=== PATIENT | male | born 1950 | race Caucasian/White ===

== ENCOUNTER 2016-12-16 17:51 | Inpatient (IN) ==
[2016-12-16] MEDS ORDERED: 0.9 % Sodium Chloride 1,000 ML IVC ONE (18:03)
[2016-12-16] MEDS: Ondansetron 4 MG/2 ML VIAL ONE (18:04)
[2016-12-16 18:26] LABS: Basophils # 0.1 K/mcL (0.0-0.2); Basophils % 0.4 %; Eosinophils % 0.1 %; Hematocrit 40.8 % (37.5-50.1); Hemoglobin 13.8 g/dL (12.9-16.9); Immature Granulocytes % 0.8 % (0-4); Lymphocytes # 1.4 K/mcL (0.6-4.6); Lymphocytes % 7.5 %; Mean Corpuscular HGB Conc 33.8 g/dL (31.6-35.5); Mean Corpuscular Hemoglobin 31.8 pg (28.0-33.3); Mean Platelet Volume 9.3 fL (9.4-12.4); Monocytes # 0.8 K/mcL (0.0-1.3); Neutrophils # 16.2 K/mcL (1.6-8.9); Platelet Count 380 K/mcL (140-400); Red Blood Count 4.34 M/mcL (4.19-5.50); Red Cell Distribution Width 11.6 % (11.5-14.5); Segmented Neutrophils % 87.2 %
--- NOTE | 2016-12-16 18:49 | Emergency Department Note ---
Disposition Clinical Impression: Colitis, Dizziness Nausea and vomiting Qualifiers: Vomiting type: unspecified Vomiting Intractability: intractable Qualified Code( s): R11.2 - Nausea with vomiting, unspecified Disposition: Admitted As Inpatient Condition: Good Time of Disposition: 20:24 General Adult HPI - General Chief complaint: ED Nausea/Vomiting/Diarrhea Stated complaint: Multiple complaints Time Seen by Provider: 12/16/16 17:53 Source: patient Limitations: no limitations Nursing Notes Reviewed: Yes Vital Signs Reviewed: Yes - History of Present Illness HPI Narrative: 66-year-old male presented to the emergency department multiple complaints via EMS. Patient states this morning when he woke up he felt dizzy, chest pain, had abdominal pain and nausea and vomiting. Patient also states he has a headache. This headache is the exact same symptoms as his previous headaches but he was unable to take his Tylenol due to the vomiting. Patient states he also has diffuse abdominal tenderness and is actively vomiting in the room. Denies hematemesis or hematochezia. Patient has no significant cardiac history and denies any strokes. Denies being on any blood thinners at this time. Denies any visual changes or other neurological complaints. Denies any previous abdominal surgeries but does disclose a history of gallstones. Pain Scale: 6 - Related Data Allergies Allergy/AdvReac Type Severity Reaction Status Date / Time propoxyphene [From Darvon] Allergy Itching Verified 10/23/16 09:11 All systems ED: reviewed and negative except as stated. Constitutional: Denies: fever, chills Eyes: Reports: as per HPI ENT ED: Reports: as per HPI Cardiovascular: Reports: chest pain. Denies: palpitations, dyspnea on exertion Respiratory: Denies: cough, dyspnea, wheezes Gastrointestinal: Reports: abdominal pain, nausea, vomiting Genitourinary: Reports: as per HPI Musculoskeletal: Reports: as per HPI Integumentary: Denies: rash, abrasion, lesions Neurological: Reports: headache. Denies: weakness, numbness, paresthesias Psychiatric: Reports: as per HPI Endocrine: Reports: as per HPI Hematological/Lymphatic: Reports: as per HPI Allergic/Immunologic: Reports: as per HPI Past Medical History - Past Medical History Attestation: Yes The following information was validated with the patient. Medical history: Reports: COPD, hypertension Psychiatric history: Reports: no psych history - Social History Smoking Status: Current every day smoker Smokeless Tobacco Status: No Alcohol use: Reports: none Drug use: Reports: none Physical Exam - General Limitations: no limitations General appearance: alert, in no apparent distress - Head Head exam: atraumatic, normocephalic, normal inspection - Eye Eye exam: Present: other (Rotatory nystagmus noted.) - Chest Chest inspection: Present: normal inspection, symmetric chest wall rise. Absent : tenderness, rash - Respiratory Respiratory exam: Present: normal lung sounds bilaterally. Absent: respiratory distress, wheezes - Cardiovascular Cardiovascular exam: Present: regular rate, normal rhythm, normal heart sounds - Abdominal Exam Abdominal exam: Present: soft, tenderness, normal bowel sounds. Absent: distention, guarding, rebound, rigidity Abdominal tenderness: Present: diffuse, moderate - Extremities Exam Extremities exam: Present: normal inspection, full ROM - Back Exam Back exam: Absent: CVA tenderness (R), CVA tenderness (L) - Neurological Exam Neurological exam: Present: alert, oriented X3 - Psychiatric Psychiatric exam: Present: normal affect, normal mood - Skin Skin exam: Present: warm, intact Course Course Narrative: 66-year-old male presenting to the emergency department with multiple complaints. We will workup each individual complaint including chest pain rule out, CT of the head, abdominal labs including CBC, CMP, lipase. Disposition pending results and imaging. Patient is alert and oriented 3 in the room although he does have rotatory nystagmus. Patient continually changes his story with each physician in the room. Vital signs are stable at this time. Nausea being controlled by 8 mg of Zofran at this time. - Reevaluation(s) Reevaluation #1: Patient's CT showed concern for right colon colitis. We will begin Zosyn on the patient and admit him to the hospitalist. Patient still dizzy after meclizine. States he is having more severe abdominal pain. We will provide him with pain medication at this time. Patient states his nausea is much better. Vital signs are stable and the room patient's alert and oriented 3. Plan to admit the patient at this time. Dr. Moon accepts the patient. Time: 20:24 Vital Signs Temperature 97.7 F 12/16/16 17:52 Pulse Rate 82 12/16/16 17:52 Respiratory Rate 18 12/16/16 17:52 Blood Pressure 92/64 12/16/16 17:52 O2 Sat by Pulse Oximetry 99 12/16/16 17:52 Temperature 97.7 F 12/16/16 17:52 Pulse Rate 68 12/16/16 20:45 Respiratory Rate 20 12/16/16 20:45 Blood Pressure 142/85 12/16/16 20:45 O2 Sat by Pulse Oximetry 96 12/16/16 20:45 Oxygen Delivery Oxygen Delivery Room Air Medical Decision Making - Medical Records Medical records reviewed: Yes I reviewed the patient's medical records. - Lab Data Lab results reviewed: Yes I reviewed the patient's lab results. Result diagrams: 12/16/16 18:13 12/16/16 18:13 Lab Results 12/16/16 12/16/16 12/16/16 Range/Units 18:13 18:13 18:13 WBC 18.6 H (4.3-11.1) K/mcL RBC 4.34 (4.19-5.50) M/mcL Hgb 13.8 (12.9-16.9) g/dL Hct 40.8 (37.5-50.1) % MCV 94.0 (83.0-100.0) fL MCH 31.8 (28.0-33.3) pg MCHC 33.8 (31.6-35.5) g/dL RDW 11.6 (11.5-14.5) % Plt Count 380 (140-400) K/mcL MPV 9.3 L (9.4-12.4) fL Immature Gran % 0.8 (0-4) % Seg Neutrophils % 87.2 % Lymphocytes % 7.5 % Monocytes % 4.0 % Eosinophils % 0.1 % Basophils % 0.4 % Neutrophils # 16.2 H (1.6-8.9) K/mcL Lymphocytes # 1.4 (0.6-4.6) K/mcL Monocytes # 0.8 (0.0-1.3) K/mcL Eosinophils # 0.0 (0.0-0.6) K/mcL Basophils # 0.1 (0.0-0.2) K/mcL Sodium 140 (136-145) mEq/L Potassium 4.1 (3.5-4.5) mEq/L Chloride 107 (98-109) mEq/L Carbon Dioxide 24 (19-29) mEq/L BUN 10 (8-26) mg/dL Creatinine 0.74 (0.72-1.25) mg/dL Est GFR ( Amer) > 60 (> 60) Est GFR (Non-Af Amer) > 60 (> 60) BUN/Creatinine Ratio 14 (6-26) Glucose 141 H (70-99) mg/dL Calculated Osmolality 291 (280-300) Calcium 9.3 (8.6-10.8) mg/dL Magnesium 1.8 (1.6-2.6) mg/dL Total Bilirubin 0.4 (0.2-1.2) mg/dL AST 22 (5-34) Units/L ALT 20 (0-55) Units/L Alkaline Phosphatase 118 (38-126) Units/L Troponin I 0.01 (0-0.03) ng/mL Serum Total Protein 6.7 (6.0-8.3) g/dL Albumin 3.8 (3.5-5.0) g/dL Globulin 2.9 (2.4-3.5) g/dL Albumin/Globulin Ratio 1.3 (1.1-2.2) Lipase 18 (8-78) Units/L Urine Color (Yellow) Urine Clarity (Clear) Urine pH (5.0-8.0) pH Units Ur Specific [place] (1.010-1.025) Urine Protein (Neg-Trace) mg/dL Urine Glucose (UA) (Normal) mg/dL Urine Ketones (Negative) mg/dL Urine Blood (Negative) Urine Nitrite (Negative) Urine Bilirubin (Negative) Urine Urobilinogen (Normal) mg/dL Ur Leukocyte Esterase (Negative) Urine Microscopic RBC (0-3) per hpf Urine Microscopic WBC (0-3) per hpf Urine Bacteria (None-Few) per hpf Ur Culture Indicated? (NO) Ethyl Alcohol < 10 (0-10) mg/dL 12/16/16 Range/Units 18:20 WBC (4.3-11.1) K/mcL RBC (4.19-5.50) M/mcL Hgb (12.9-16.9) g/dL Hct (37.5-50.1) % MCV (83.0-100.0) fL MCH (28.0-33.3) pg MCHC (31.6-35.5) g/dL RDW (11.5-14.5) % Plt Count (140-400) K/mcL MPV (9.4-12.4) fL Immature Gran % (0-4) % Seg Neutrophils % % Lymphocytes % % Monocytes % % Eosinophils % % Basophils % % Neutrophils # (1.6-8.9) K/mcL Lymphocytes # (0.6-4.6) K/mcL Monocytes # (0.0-1.3) K/mcL Eosinophils # (0.0-0.6) K/mcL Basophils # (0.0-0.2) K/mcL Sodium (136-145) mEq/L Potassium (3.5-4.5) mEq/L Chloride (98-109) mEq/L Carbon Dioxide (19-29) mEq/L BUN (8-26) mg/dL Creatinine (0.72-1.25) mg/dL Est GFR ( Amer) (> 60) Est GFR (Non-Af Amer) (> 60) BUN/Creatinine Ratio (6-26) Glucose (70-99) mg/dL Calculated Osmolality (280-300) Calcium (8.6-10.8) mg/dL Magnesium (1.6-2.6) mg/dL Total Bilirubin (0.2-1.2) mg/dL AST (5-34) Units/L ALT (0-55) Units/L Alkaline Phosphatase (38-126) Units/L Troponin I (0-0.03) ng/mL Serum Total Protein (6.0-8.3) g/dL Albumin (3.5-5.0) g/dL Globulin (2.4-3.5) g/dL Albumin/Globulin Ratio (1.1-2.2) Lipase (8-78) Units/L Urine Color Yellow (Yellow) Urine Clarity Cloudy A (Clear) Urine pH 8.0 (5.0-8.0) pH Units Ur Specific [place] 1.018 (1.010-1.025) Urine Protein Negative (Neg-Trace) mg/dL Urine Glucose (UA) Normal (Normal) mg/dL Urine Ketones Negative (Negative) mg/dL Urine Blood Negative (Negative) Urine Nitrite Negative (Negative) Urine Bilirubin Negative (Negative) Urine Urobilinogen Normal (Normal) mg/dL Ur Leukocyte Esterase Negative (Negative) Urine Microscopic RBC 0-3 (0-3) per hpf Urine Microscopic WBC 0-3 (0-3) per hpf Urine Bacteria Few (None-Few) per hpf Ur Culture Indicated? NO (NO) Ethyl Alcohol (0-10) mg/dL - Radiology Data Radiology results reviewed: Yes I reviewed the patient's radiology results. Chest X-Ray 12/16/16 18:04 IMPRESSION: Negative portable study. D/ / Ting Lozada Cha, MD / Ting Lozada Cha, MD Interpreting Provider: Ting Lozada Cha, MD Head CT 12/16/16 18:30 IMPRESSION: Patchy areas of small vessel ischemic change bilaterally with a few prior lacunar infarcts. No acute abnormality otherwise. D/ / James Langford / James Langford Interpreting Provider: James Langford Abdomen/Pelvis CT 12/16/16 19:09 IMPRESSION: Right nephrolithiasis. Questionable wall thickening the right colon. Correlation for infectious or inflammatory right colitis is recommended. D/ / Ting Lozada Cha, MD / Ting Lozada Cha, MD Interpreting Provider: Ting Lozada Cha, MD Attestation Statement - Attestation Attestation: I examined this patient and my medical decision-making was reviewed with the Resident Physician, Dr. Cote. I agree with the documented findings, disposition and treatment plan as described except to the extent set forth below. Patient is a 66-year-old white male who presents to the emergency department brought by his family today for intractable nausea and vomiting since waking this morning. Patient states to me that upon waking he had a sudden onset of intense dizziness and upon getting out of bed had difficulty walking due to this spinning sensation, describes him hanging onto things to get to the bathroom. After arriving in the bathroom patient began having nausea and vomiting which has lasted the entire day. Patient denies any headache, difficulty with speech, no focal weakness or numbness of the extremities, and denies any loss of consciousness due to these symptoms. Patient denies any chest pain pressure or heaviness, no diaphoresis, does complain of abdominal pain in various locations but upon questioning points to his right lower quadrant. Patient denies any bowel changes associated with this nausea and vomiting. Patient feels strongly that all the symptoms began with dizziness followed by the nausea and vomiting which was then followed by the abdominal pain. Patient states that this time he is most bothered by the ongoing dizziness which is worse with positional changes and head turning. Vital signs stable on arrival. I agree with patient's physical exam findings as documented. Patient had IV saline while established IV fluids were initiated and he was given medication for nausea vomiting and vertigo. This quickly resolved his vomiting and patient was resting more comfortably. Due to the new onset of vertigo we did obtain head CT. Symptoms began around 7:00 this morning. Patient's head CT showed some chronic ischemic changes but no acute findings. We proceeded with a chest x-ray and EKG. EKG showed a right bundle branch block but no acute ischemia. Patient's troponin was within normal limits. Due to ongoing complaints of some mild abdominal pain we proceeded with abdominal and pelvic CAT scan with contrast. CT showed findings consistent with early colitis. We will cover the patient with IV antibiotics and admit the patient for ongoing vertigo, nausea vomiting, leukocytosis and colitis. Patient remained hemodynamically stable throughout his ED course.
[2016-12-16 18:51] LABS: Alanine Aminotransferase 20 Units/L (0-55); Albumin 3.8 g/dL (3.5-5.0); Albumin/Globulin Ratio 1.3 (1.1-2.2); Alkaline Phosphatase 118 Units/L (38-126); Aspartate Amino Transferase 22 Units/L (5-34); BUN/Creatinine Ratio 14 (6-26); Bilirubin,Total 0.4 mg/dL (0.2-1.2); Blood Urea Nitrogen 10 mg/dL (8-26); Calcium 9.3 mg/dL (8.6-10.8); Carbon Dioxide 24 mEq/L (19-29); Chloride 107 mEq/L (98-109); Globulin 2.9 g/dL (2.4-3.5); Glucose 141 mg/dL (70-99); Lipase 18 Units/L (8-78); Osmolality,Calculated 291 (280-300); Potassium 4.1 mEq/L (3.5-4.5); Sodium 140 mEq/L (136-145); Total Protein 6.7 g/dL (6.0-8.3); eGFR For African Americans > 60 (> 60); eGFR For Non-African Americans > 60 (> 60)
[2016-12-16 19:07] LABS: Magnesium 1.8 mg/dL (1.6-2.6)
[2016-12-16 19:08] LABS: Ethanol < 10 mg/dL (0-10)
[2016-12-16 19:24] LABS: Bilirubin,Urine Negative (Negative); Blood,Urine Negative (Negative); Clarity,Urine Cloudy (Clear); Color,Urine Yellow (Yellow); Glucose,Urine (UA) Normal (Normal); Ketones,Urine Negative (Negative); Leukocyte Esterase,Urine Negative (Negative); Nitrite,Urine Negative (Negative); Protein,Urine Negative (Neg-Trace); Specific Gravity,Urine 1.018 (1.010-1.025); Urobilinogen,Urine Normal (Normal)
[2016-12-16 19:58] LABS: RBC,Urine 0-3 per hpf (0-3); WBC,Urine 0-3 per hpf (0-3)
[2016-12-16 19:59] LABS: Bacteria,Urine Few per hpf (None-Few)
[2016-12-16] MEDS ORDERED: Piperacillin/Tazobactam 3.375 GM in D5% in Water (Mini-Bag+) 100 ML IVPB ONE (20:15)
[2016-12-16] MEDS ORDERED: *HR* FentaNYL (PF) 100 MCG/2 ML VIAL IVP ONE (20:25)
[2016-12-17] MEDS ORDERED: Ondansetron 4 MG/2 ML VIAL IVP PRN (00:21)
[2016-12-17] MEDS ORDERED: *HR* Morphine 2 MG/ML SYRINGE IVP PRN (00:22)
[2016-12-17] MEDS ORDERED: 0.9 % Sodium Chloride 1,000 ML ONE (00:43)
[2016-12-17] MEDS ORDERED: Acetaminophen 325 MG TABLET PO PRN (01:03)
[2016-12-17] MEDS ORDERED: Naloxone 0.4 MG/ML INJ IVP PRN (01:03)
--- NOTE | 2016-12-17 01:12 | Internal Med History&Physical ---
Date of Encounter: 12/17/16 Time of Encounter: 21:00 Assessment and Plan (1) Colitis Current visit: Yes Status: Acute CT chest showeda rather raise the concern for right-sided colitis. On examination I did not notice any rebound tenderness or mass. However some tenderness is present. Patient does have fever. Based on CAT scan he has right -sided colitis other possibilities could be ischemic colitis versus infectious. He is a little too old for inflammatory bowel disease. Blood culture drawn in the ER and he will be started on IV Levaquin and Flagyl. Aggressive hydration with normal saline 200 mL an hour but that can be reduced tomorrow after assessing fluid balance. Follow-up with CBC and CMP. Discussed with patient and the family and also answer all the questions. Patient says he is allergic to morphine as is the driving him crazy. We will try to avoid morphine derivatives try IV Toradol for couple of doses before he can able to take oral then probably Glen can be started. IV Zofran when necessary. IV Protonix as started. I consulted. (2) Dizziness Current visit: Yes Status: Acute (3) Nausea and vomiting Current visit: Yes Status: Acute Qualifiers: Vomiting type: unspecified Vomiting Intractability: intractable Qualified Code(s): R11.2 - Nausea with vomiting, unspecified Internal Medicine - H&P: HPI Chief complaint: Abdominal pain Admitted From: Home Plans for Post Hospital Care: Home History of present illness: Mr. Kaur is a 66 year old male was medical history significant for bipolar disorder presented with 1 day history of diffuse abdominal pain nausea vomiting. Pain is more generalized no known aggravating or relieving factors associated with some dizziness. According to ER notes patient complaint chest pain however to me he did not complain such. He denies any shortness of breath fever or chills dysuria urgency frequency hematuria hematemesis hematochezia or melena. Past Med Surg Social Fam HX - Past Medical History Medical history: COPD, hypertension Psychiatric history: no psych history - Past Surgical History Surgical History: no surgical history - Social History Smoking Status: Current every day smoker Smokeless Tobacco Status: No Alcohol use: none Drug use: none Internal Medicine - H&P: Meds 3 Allergy/AdvReac Type Severity Reaction Status Date / Time propoxyphene [From Darvon] Allergy Itching Verified 10/23/16 09:11 All Systems PM: A 10-system review of systems was performed and is negative for pertinent findings except as documented above in the HPI. - Constitutional Constitutional: no chills, no fever(s), no night sweats - EENT Eyes: no change in vision, no discharge, no pain, no photophobia Ears: no ear discharge, no ear pain, no tinnitus Nose, mouth and throat: no dysphagia, no nasal discharge, no neck pain, no sore throat - Cardiovascular Cardiovascular ROS IM: no chest pain, no diaphoresis, no dyspnea, no lightheadedness, no palpitations, no syncope - Respiratory Respiratory: no cough, no dyspnea, no wheezing, no excessive phlegm production - Gastrointestinal Gastrointestinal: abdominal pain, nausea, vomiting, no diarrhea, no hematemesis , no hematochezia, no melena - Musculoskeletal Musculoskeletal ROS IM: no numbness, no tingling - Integumentary Integumentary IM: no rash, no unusual bruising - Neurological Neurological ROS: no confusion, no convulsions, no focal weakness, no numbness, no tingling, no tremor(s) - Hematologic/Lymphatic Hematologic/Lymphatic: no easy bruising - Constitutional Vitals: Temp Pulse Resp BP Pulse Ox 97.8 F 69 17 128/78 97 12/16/16 22:15 12/16/16 22:15 12/16/16 22:15 12/16/16 22:15 12/16/16 22:15 General appearance: Present: mild distress, A&O X 3, answers questions appropriately - Head Head exam: Present: atraumatic, normocephalic - Eye Eye exam: Present: PERRL, conjuntiva pink, sclera anicteric Pupils: Present: PERRL - Neck Neck exam general surgery: Present: supple, trachea midline. Absent: lymphadenopathy - Respiratory Respiratory exam: Present: CTAB. Absent: accessory muscle use, rales, rhonchi, wheezes - Cardiovascular Cardiovascular exam: Present: RRR, +S1, +S2. Absent: diastolic murmur, gallop, rubs, systolic murmur - GI/Abdominal GI/Abdominal exam: Present: hypoactive bowel sounds, soft, tenderness, no peritoneal signs. Absent: distended - Extremities Exam Extremities exam: Present: warm, radial pulses palpable and symmetrical. Absent : calf tenderness, cyanotic, pedal edema - Neurological Exam Neurological exam: Present: CN II-XII intact, oriented X3, no focal deficits. Absent: pronater drift, facial droop, speech deficit - Skin Skin exam: Present: dry, intact Internal Med - H&P Results - Labs CBC & Chem 7: 12/16/16 18:13 12/16/16 18:13
[2016-12-17] MEDS: 0.9 % Sodium Chloride 1,000 ML IVC SCH ×4 (01:16→17:18)
[2016-12-17] MEDS: Levofloxacin 500 MG/100 ML 500 MG/100 ML BAG IVPB SCH (01:34)
[2016-12-17] MEDS: Ketorolac 30 MG/ML VIAL IVP PRN ×2 (01:34→08:10)
[2016-12-17] MEDS: Pantoprazole 40 MG VIAL IVP SCH (08:10)
[2016-12-17] MEDS: Ondansetron 4 MG/2 ML VIAL IVP PRN ×2 (08:11→17:19)
[2016-12-17 08:28] LABS: Basophils % 0.2 %; Eosinophils % 0.2 %; Hematocrit 40.9 % (37.5-50.1); Hemoglobin 13.8 g/dL (12.9-16.9); Immature Granulocytes % 0.5 % (0-4); Immature Platelets 3.2 % (1.1-6.1); Lymphocytes # 2.2 K/mcL (0.6-4.6); Mean Corpuscular HGB Conc 33.7 g/dL (31.6-35.5); Mean Corpuscular Hemoglobin 31.9 pg (28.0-33.3); Mean Corpuscular Volume 94.7 fL (83.0-100.0); Mean Platelet Volume 9.5 fL (9.4-12.4); Monocytes # 1.2 K/mcL (0.0-1.3); Monocytes % 8.7 %; Neutrophils # 9.7 K/mcL (1.6-8.9); Platelet Count 421 K/mcL (140-400); Red Blood Count 4.32 M/mcL (4.19-5.50); Red Cell Distribution Width 11.8 % (11.5-14.5); Segmented Neutrophils % 73.4 %
[2016-12-17 08:38] LABS: BUN/Creatinine Ratio 14 (6-26); Blood Urea Nitrogen 11 mg/dL (8-26); Calcium 9.5 mg/dL (8.6-10.8); Carbon Dioxide 23 mEq/L (19-29); Chloride 108 mEq/L (98-109); Glucose 96 mg/dL (70-99); Magnesium 1.6 mg/dL (1.6-2.6); Osmolality,Calculated 287 (280-300); Phosphorous 3.1 mg/dL (2.3-4.7); Potassium 4.4 mEq/L (3.5-4.5); Sodium 139 mEq/L (136-145); eGFR For African Americans > 60 (> 60); eGFR For Non-African Americans > 60 (> 60)
--- NOTE | 2016-12-17 09:23 | Neurology - Consult Note ---
<Stan Acharya - Last Filed: 12/17/16 11:39> Date of Encounter: 12/17/16 Time of Encounter: 08:45 Assessment and Plan (1) Double vision with both eyes open Current Visit: Yes Status: Acute Patient reports double vision when both of his eyes are open. He states that the double vision is resolved when one eye is closed, suggesting binocular diplopia. He states that this has been off and on for the last 6 months and appears to be somewhat associated with a severe headache that he has been having in the same period of time. He woke this morning with double vision that did not go away like it normally does. CT scans of the patient head show remote lacunar infarct in the basal ganglia, but no acute changes seen on CT. Patient double vision could be due to CVA, migraine, aneurysm, malignancy, hydrocephalus. CTA of the head/neck was ordered and will wait for completion Recommend MRI Allow permissive hypertension until CVA has been ruled out (2) Headache Current Visit: Yes Status: Acute Patient reports having headache off and on for the last 6 months that has been associated with episodes of double vision. He reprots that the headache starts in the back of his head and radiates into his right eye. He states that there is some photophobia with his headaches and that being aggravated generally makes his headaches worse. He has not noticed that anything makes the headaches better. Patient headache could be due to migraine, aneurysm, malignancy, CVA, strain from vomiting. Though with the report of photophobia, binocular diplopia , nausea, and vomiting there is concern that this could represent a brainstem migraine. Given the patient age and risk factors, recommend further evaluation of headache with Head/Neck CTA and MRI If no other reason for symptoms found consider arrest of headache with reglan, benadry, and toradol History of Present Illness Chief complaint: Nausea, vomiting, headache, abdominal pain, double vision HPI: Mr. Kaur is a 66 year old male who presented to the ER yesterday because of having 1 day of continued nausea, vomiting, and abdominal pain. During this time , he states that he has had a severe headache and some double vision as well. He states that he woke on Saturday morning and was having nausea and vomiting, preventing him from keeping anything down. He had developed abdominal pain with his symptoms. He also states that in the same time frame he had been having a severe headache. He woke this morning at 630 and immediately noticed that he was having double vision. His double vision is worse in his peripheral vision and goes away when he closes one eye. The headache he is having is associated with some photophobia, but not severe. General aggravation makes the pain worse. Since Saturday, he states that he has been feeling dizzy and has had some difficulty walking, relying on furniture and objects in the house to help support him. He has suffered a fall while he was out working outside. He has a history of COPD and had become short of breath and fell. He reports that at this time he was having the headache and double vision. He states that he has been having these same severe headaches for the last 6 months and that they start in the back of his head and radiate into his right eye. Since these headaches have begun he has been having off and on double vision as well, that is worse in his peripheral vision. In the past his double vision had only lasted for a couple seconds. Past Med Surg Social Fam HX - Past Medical History Medical history: COPD, hypertension Psychiatric history: no psych history - Past Surgical History Surgical History: no surgical history - Social History Smoking Status: Current every day smoker Smokeless Tobacco Status: No Alcohol use: none Drug use: none Medications and Allergies Albuterol Sulfate [Albuterol Inhaler] 2 puff IH Q6H PRN 12/17/16 [History] Aspirin [Lo-Dose Aspirin EC] 81 mg PO DAILY 12/17/16 [History] Carboxymethylcellulose Sodium [Refresh Tears] 1 drop BOTH EYES QID 12/17/16 [ History] Cyclobenzaprine [Flexeril] 10 mg PO TID 12/17/16 [History] Docusate Sodium [Dok] 300 mg PO HS 12/17/16 [History] FLUoxetine HCl [PROzac] 40 mg PO DAILY 12/17/16 [History] Fluticasone Propionate [Allergy Relief] 1 spr NS BID 12/17/16 [History] Gabapentin [Neurontin] 100 mg PO TID 12/17/16 [History] Lisinopril [Zestril] 10 mg PO DAILY 12/17/16 [History] [place] Carbonate 300 mg PO BID 12/17/16 [History] Meloxicam [Mobic] 7.5 mg PO DAILY 12/17/16 [History] Mometasone Furoate [Asmanex] 220 mcg IH BID 12/17/16 [History] Multivit-Min/FA/Lycopen/Lutein [A [employer] Multivit Tab] 1 tab PO DAILY [History] Omeprazole [PriLOSEC] 40 mg PO DAILY 12/17/16 [History] Sildenafil Citrate [Viagra] 100 mg PO AD PRN 12/17/16 [History] Simethicone [Gas-X] 160 mg PO TID PRN 12/17/16 [History] hydroCHLOROthiazide [Hydrochlorothiazide] 12.5 mg PO DAILY 12/17/16 [History] 3 Allergy/AdvReac Type Severity Reaction Status Date / Time propoxyphene [From Darvon] Allergy Itching Verified 10/23/16 09:11 morphine AdvReac Confusion Verified 12/17/16 01:18 - Constitutional Constitutional ROS IM: headache(s), no anorexia, no chills, no fever(s), no weakness - Eyes Eyes: right: pain, bilateral: diplopia (as per HPI) - Ears Ears: bilateral: decreased hearing (chronic) - Nose, Mouth, Throat Nose, mouth and throat: dizziness, facial pain, headache(s), no hoarseness - Cardiovascular Cardiovascular ROS IM: no chest pain, no diaphoresis, no edema - Respiratory Respiratory IM: dyspnea (as per HPI), no cough - Gastrointestinal Gastrointestinal: abdominal pain, diarrhea, nausea, vomiting, no constipation, no hematemesis, no hematochezia - Musculoskeletal Musculoskeletal ROS IM: abnormal gait (as per HPI), no muscle cramps, no muscle weakness - Neurological Neurological ROS: abnormal gait, dizziness, headache(s), numbness (around nose) , no loss of vision, no memory loss, no syncope, no weakness Physical Examination - Vital Signs Vital Signs: Initial Vital Signs Temp Pulse Resp BP Pulse Ox 97.7 F 82 18 92/64 99 12/16/16 17:52 12/16/16 17:52 12/16/16 17:52 12/16/16 17:52 12/16/16 17:52 - Constitutional General appearance: comfortable - Neurologic Detailed motor examination: grossly full strength in all extremities Detailed sensory examination: light touch (decreasedd sensation in b/l maxilla) Reflex and gait examination: intact Mental Status Examination: awake, alert, oriented to person, oriented to place, oriented to time, follows commands appropriately, answers questions appropriately, no aphasia, no aproxia Cranial nerve examination: PERRL, EOMI, visual ambriz intact, no facial asymmetry is present, no dysarthria, hearing is intact symmetrically, flexes SCM and trapezius muscles symmetrically with full power, tongue protrudes midline Cerebellar examination: no dysmetria, performs finger to nose and heel to badillo symmetrically without ataxia (slight tremulousness) Results - Laboratory Findings CBC and BMP: 12/17/16 08:03 12/17/16 08:03 Abnormal lab findings: Abnormal lab results WBC 13.2 K/mcL (4.3-11.1) H 12/17/16 08:03 Plt Count 421 K/mcL (140-400) H 12/17/16 08:03 Neutrophils # 9.7 K/mcL (1.6-8.9) H 12/17/16 08:03 ESR 15 mm/hr (0-10) H 12/17/16 08:03 POC Glucose 93 (58-89) H 12/17/16 08:23 Urine Clarity Cloudy (Clear) A 12/16/16 18:20 Consult Discharge Plan - Plan [facility] Care Provider[facility] - <Andrés Slater - Last Filed: 12/17/16 18:07> Date of Encounter: 12/17/16 Time of Encounter: 17:56 Assessment and Plan (1) Double vision with both eyes open Current Visit: Yes Status: Acute This patient is indeed describing intermittent binocular diplopia. Generally this is secondary to either problems with brainstem function, cranial nerve function as the plays a role in extraocular motility, problems with the extraocular muscles. I would like to rule out the possibility of a small brainstem infarct although the lack of other cranial nerve findings probably decrease the likelihood of this. Although he does seem to have migraine headaches, the diplopia and the headaches seem to be independent in one another. The CTA of the brain was negative for evidence of an aneurysm. He does not have malignant hypertension. I am going to check an Sid level as well as thyroid functions. Otherwise If the MRI of the brain is negative for brainstem pathology and labs are negative, I would attribute this problem to difficulty with extraocular motility and recommend he see an cob sawyer to consider prisms. History of Present Illness HPI: Patient was seen, chart was reviewed independently, patient was examined independently. The case was discussed with Dr. Acharya. I agree with his history as taken above. In addition I would like to add that CT scan of the neck and of the brain was unremarkable. No evidence of aneurysm is present. Patient's headaches and diplopia also independent of one another. He denies any other brainstem symptomatology other than the diplopia which is been occurring intermittently for 6 months now. He denies ptosis, denies dyspnea or shortness of breath. All Systems: A 10-system review of systems was performed and is negative for pertinent findings except as documented above in the HPI. Review of Systems: 10 point review of systems is consistent with a history of present illness and otherwise negative. Physical Examination - Vital Signs Vital Signs: Initial Vital Signs Temp Pulse Resp BP Pulse Ox 97.7 F 82 18 92/64 99 12/16/16 17:52 12/16/16 17:52 12/16/16 17:52 12/16/16 17:52 12/16/16 17:52 - Neurologic Detailed motor examination: full strength in all major muscle groups Motor examination - right side: 5/5: deltoids, biceps, triceps, wrist flexion, wrist extension, back tender fourdrinier, hip flexors, tibialis Anterior, quadriceps, toe extension (EHL), plantarflexion Motor examination - left side: 5/5: deltoids, biceps, triceps, wrist flexion, wrist extension, hip flexors, back tender fourdrinier, quadriceps, tibialis Anterior, toe extension (EHL), plantarflexion Mental Status Examination: awake, alert, oriented to person, oriented to place, oriented to time, follows commands appropriately, answers questions appropriately, no agnosia, no aphasia, no aproxia Cranial nerve examination: PERRL, EOMI, visual ambriz intact, corneal reflexes brisk symmetrically, sensory to face intact, mastication intact, no facial asymmetry is present, no dysarthria, hearing is intact symmetrically, soft palate elevates bilaterally upon phonation, gag reflex intact, flexes SCM and trapezius muscles symmetrically with full power, tongue protrudes midline, no atrophy or facial fasiculations present Cerebellar examination: no dysmetria, performs finger to nose and heel to badillo symmetrically without ataxia, no gait ataxia, no truncal ataxia, no difficulty with rapid alternating movements Results - Laboratory Findings CBC and BMP: 12/17/16 08:03 12/17/16 08:03 Abnormal lab findings: Abnormal lab results WBC 13.2 K/mcL (4.3-11.1) H 12/17/16 08:03 Plt Count 421 K/mcL (140-400) H 12/17/16 08:03 Neutrophils # 9.7 K/mcL (1.6-8.9) H 12/17/16 08:03 ESR 15 mm/hr (0-10) H 12/17/16 08:03 POC Glucose 92 (58-89) H 12/17/16 11:24 Urine Clarity Cloudy (Clear) A 12/16/16 18:20
[2016-12-17] MEDS: MetroNIDAZOLE 500 MG/100 ML 500 MG/100 ML BAG IVPB SCH ×3 (09:39→23:30)
[2016-12-17] MEDS: Aspirin 325 MG TABLET PO SCH (10:07)
[2016-12-17] MEDS: *HR* HYDROmorphone (PF) 1 MG/ML SYRINGE IVP PRN ×3 (10:07→21:17)
--- NOTE | 2016-12-17 11:06 | Gastroenterology Consult Note ---
<Lucy Grady - Last Filed: 12/17/16 11:15> Date of Encounter: 12/17/16 Time of Encounter: 09:30 - Assessment and plan (1) Colitis Current Visit: Yes Status: Acute Assessment and plan: CT suggests right colitis. He has continued lower quadrant abdominal pain. He may need a colonoscopy as he complains of intermittent dark stools and rectal bleeding. He is being treated with flagyl and levaquin which are appropriate. (2) Nausea and vomiting Current Visit: Yes Status: Acute Assessment and plan: Pt is NPO. Will proceed with EGD if ok with neurology. Has 40 pound weight loss in past year which is worrisome. Had CT and ultrasound at [facility], sent for records. last EGD and colonoscopy 2 years ago at [facility]. Qualifiers: Vomiting type: unspecified Vomiting Intractability: intractable Qualified Code(s): R11.2 - Nausea with vomiting, unspecified (3) Double vision with both eyes open Current Visit: Yes Status: Acute Assessment and plan: Being seen by neurology, CT head done showed no acute process. - Time Spent With Patient Total time spent is greater than 50% in coordination of care (as documented) at patient's floor/unit and/or counseling patient: GI History of Present Illness - Data of Consult Patient: new to practice Consult date: 12/17/16 Requesting Physician: Elba Valentin MD - Consult Narrative Reason for consult: abdominal pain/nausea and vomiting History of present illness: Mr. Kaur is a 66 year old male who presented with abdominal pain, nausea and vomiting. He has a pmHX of bipolar disorder, COPD and HTN. He also reports a history of acute pancreatitis "10-20 years ago". He reports 1 year history of poor appetite and intermittent nausea and vomiting and weight loss of 40 pounds. Pain was much worse on Saturday when he presented to ER. He reports vomiting and dry-heaves 20-30 times starting on Saturday. He is also complaining of pain to his left side that radiates around to his back. He reports post prandial pain and nausea even with water. He also reports 2-3 episodes of diarrhea on Saturday and Saturday. He reports chills and "hot flashes ", had fever in ER. He denies any sick contacts. He reports occasional bright red blood streaks with wiping and states he occasionally has dark or acosta colored stools but not all the time. He has a history of daily alchohol use but states he quit 11 years ago. He denies history of IVDU or liver disease. CT abd/ pelvis showed: Right nephrolithiasis. Questionable wall thickening the right colon. Labs showed WBC 13.2, hemoglobin 13.8, sodium 139, potassium 4.4, CO2 23 , BUN of 11, creatinine 0.78, total bilirubin 0.4, AST 22, ALT 20, lipase 18. He reports he has had recent CT and abdominal ultrasounds at the [facility]. He was also complaining of dizziness and double-vision this morning and CT head was done and neurology consulted. Colonoscopy: 2014 [facility] (normal per pts report) EGD: 2014 [facility] (normal per pt) NSAIDS: denies Anticoagulants: none Past Med Surg Social Fam HX - Past Medical History Medical history: COPD, hypertension Psychiatric history: bipolar - Past Surgical History Surgical History: no surgical history - Social History Smoking Status: Current every day smoker Smokeless Tobacco Status: No Alcohol use: none Drug use: none Review of Systems: GI: as per [facility] [place] GENER[facility]: fever and chills EYES: denies yellow discoloration ENT: denies pain with swallowing or difficulty swallowing CARDIO: denies chest pain, palpitations RESP: Shortness of breath with exertion : denies change in color of urine NEURO: weakness, dizziness, and blurred vision HEME: Denies any bruising MS: denies joint pain, joint swelling or back pain. DERM: denies rash or itching PSYCH: history of bipolar depression - Constitutional Vitals: Temp Pulse Resp BP Pulse Ox 97.9 F 78 18 125/71 94 12/17/16 09:42 12/17/16 10:12 12/17/16 10:12 12/17/16 10:12 12/17/16 10:01 Exam: CONSTITUTIONAL:~alert, no acute distress.~HEAD:~normocephalic.~EYES:~no jaundice.~NECK:~no obvious swelling.~HEART:~regular rate and rhythm, no murmurs. ~LUNGS:~bilateral fair air entry.~ABDOMEN:~non distended, soft, tender bilateral lower quadrants, no masses palpable, no organomegaly.~RECTAL EXAM:~ Deferred.~EXTREMITIES:~no clubbing, cyanosis or edema.~SKIN:~no stigmata of chronic liver disease.~NEUROLOGIC:~no obvious focal defect.~~~~ Results - Labs CBC & Chem 7: 12/17/16 08:03 12/17/16 08:03 Labs: Last Result ESR 15 mm/hr (0-10) H 12/17/16 08:03 Calcium 9.5 mg/dL (8.6-10.8) 12/17/16 08:03 Troponin I 0.01 ng/mL (0-0.03) 12/16/16 18:13 Entire Visit Hgb 13.8 g/dL (12.9-16.9) 12/17/16 08:03 Hct 40.9 % (37.5-50.1) 12/17/16 08:03 Total Bilirubin 0.4 mg/dL (0.2-1.2) 12/16/16 18:13 AST 22 Units/L (5-34) 12/16/16 18:13 ALT 20 Units/L (0-55) 12/16/16 18:13 Lipase 18 Units/L (8-78) 12/16/16 18:13 - Impressions Impressions Head CT 12/17/16 07:23 IMPRESSION: 1. No acute infarct or acute intracranial process identified. 2. Remote lacunar infarct within the left basal ganglia. 3. Stable [id number] chronic small vessel ischemic changes. The above findings were discussed with Dr. Fish at 9:10 a.m. on 12/17/2016. D/ / 12/17/2016 09:26:40 Laureano Marti MD / kriss[facility] Interpreting Provider: Laureano Marti MD Head CTA 12/17/16 08:59 IMPRESSION: Mild narrowing of the cavernous right internal carotid artery. Mild narrowing of the proximal P2 segment of the left posterior cerebral artery. D/ / 12/17/2016 10:42:54 Nathan Samson MD / krissy Interpreting Provider: Nathan Samson MD Neck CTA 12/17/16 08:59 IMPRESSION: Mild atherosclerosis involving both proximal internal carotid arteries. No hemodynamically significant stenosis is appreciated within the carotid arteries. Unremarkable vertebral arteries. D/ / 12/17/2016 10:04:40 Cj Barksdale MD / marlene Interpreting Provider: Cj Barksdale MD Consult Discharge Plan - Plan [facility]: [facility] Care Provider[facility] - <Gloria Krause - Last Filed: 12/17/16 14:48> Date of Encounter: 12/17/16 Time of Encounter: 13:00 - Time Spent With Patient Total time spent is greater than 50% in coordination of care (as documented) at patient's floor/unit and/or counseling patient: GI History of Present Illness - Data of Consult Requesting Physician: Elba Valentin MD - Consult Narrative History of present illness: Mr. Kaur is a 66 year old male - Constitutional Vitals: Temp Pulse Resp BP Pulse Ox 98.3 F 73 18 128/95 95 12/17/16 13:50 12/17/16 13:50 12/17/16 13:50 12/17/16 13:50 12/17/16 13:50 Results - Labs CBC & Chem 7: 12/17/16 08:03 12/17/16 08:03 Labs: Last Result ESR 15 mm/hr (0-10) H 12/17/16 08:03 Calcium 9.5 mg/dL (8.6-10.8) 12/17/16 08:03 Troponin I 0.01 ng/mL (0-0.03) 12/16/16 18:13 Entire Visit Hgb 13.8 g/dL (12.9-16.9) 12/17/16 08:03 Hct 40.9 % (37.5-50.1) 12/17/16 08:03 Total Bilirubin 0.4 mg/dL (0.2-1.2) 12/16/16 18:13 AST 22 Units/L (5-34) 12/16/16 18:13 ALT 20 Units/L (0-55) 12/16/16 18:13 Lipase 18 Units/L (8-78) 12/16/16 18:13 - Impressions Impressions Head CT 12/17/16 07:23 IMPRESSION: 1. No acute infarct or acute intracranial process identified. 2. Remote lacunar infarct within the left basal ganglia. 3. Stable [id number] chronic small vessel ischemic changes. The above findings were discussed with Dr. Fish at 9:10 a.m. on 12/17/2016. D/ / 12/17/2016 09:26:40 Laureano Marti MD / kriss[facility] Interpreting Provider: Laureano Marti MD Head CTA 12/17/16 08:59 IMPRESSION: Mild narrowing of the cavernous right internal carotid artery. Mild narrowing of the proximal P2 segment of the left posterior cerebral artery. D/ / 12/17/2016 10:42:54 Nathan Samson MD / krissy Interpreting Provider: Nathan Samson MD Neck CTA 12/17/16 08:59 IMPRESSION: Mild atherosclerosis involving both proximal internal carotid arteries. No hemodynamically significant stenosis is appreciated within the carotid arteries. Unremarkable vertebral arteries. D/ / 12/17/2016 10:04:40 Cj Barksdale MD / [facility] Interpreting Provider: Cj Barksdale MD - Attending Attestation I examined this patient and my medical decision-making was reviewed with the Resident Physician. I agree with the documented findings, disposition and treatment plan as described except to the extent set forth below. Patient 66-year-old white male admitted because of nausea and vomiting per patient he has been lately losing weight because he cannot eat and has been found to have gallstones but per patient [facility] CT scan did showed some right-sided Thickening but patient is not having any symptoms on that side denies any blood in his stool he complain of some left-sided abdominal pain. Recommendation: Patient will have a EGD done because of his acute onset of nausea and vomiting and if negative then a colonoscopy due to abnormal finding on the CAT scan with some wall thickening. we will also order a ultrasound of the gallbladder
--- NOTE | 2016-12-17 11:51 | Event Note ---
Date of Encounter: 12/17/16 Time of Encounter: 07:50 Patient is a 44y/o male admitted for abdominal pain secondary to colitis. This morning he reported of having acute onset of peripheral double vision with occipital headache. Reports of having the headache for over 12 hours. with neurology was consulted and stroke alert was called. Pt had a stat CT head which was negative for any acute intracranial bleed He was evaluated by tele neurology from [facility] (Dr. Rebollar) and no tPA was recommended. ASA and Lipitor ordered Pt had a CTA head and neck done Dr. Slater aware of the patient and to see the patient later today Pt was also seen by GI and to undergo EGD later today. Pt was seen and examined with family present at bedside. All questions were answered.
--- NOTE | 2016-12-17 12:20 | Anesthesia Evaluation PreOp ---
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) Other Medical History: Denies Any Significant HX Anesthesia History: No Prior Anesthetic Complications, Past Anesthesia ( colonoscopy) Alcohol Use: none Drug use: none Medications and Allergies Albuterol Sulfate [Albuterol Inhaler] 2 puff IH Q6H PRN 12/17/16 [History] Aspirin [Lo-Dose Aspirin EC] 81 mg PO DAILY 12/17/16 [History] Carboxymethylcellulose Sodium [Refresh Tears] 1 drop BOTH EYES QID 12/17/16 [ History] Cyclobenzaprine [Flexeril] 10 mg PO TID 12/17/16 [History] Docusate Sodium [Dok] 300 mg PO HS 12/17/16 [History] FLUoxetine HCl [PROzac] 40 mg PO DAILY 12/17/16 [History] Fluticasone Propionate [Allergy Relief] 1 spr NS BID 12/17/16 [History] Gabapentin [Neurontin] 100 mg PO TID 12/17/16 [History] Lisinopril [Zestril] 10 mg PO DAILY 12/17/16 [History] [place] Carbonate 300 mg PO BID 12/17/16 [History] Meloxicam [Mobic] 7.5 mg PO DAILY 12/17/16 [History] Mometasone Furoate [Asmanex] 220 mcg IH BID 12/17/16 [History] Multivit-Min/FA/Lycopen/Lutein [A Thru Z Select Multivit Tab] 1 tab PO DAILY [History] Omeprazole [PriLOSEC] 40 mg PO DAILY 12/17/16 [History] Sildenafil Citrate [Viagra] 100 mg PO AD PRN 12/17/16 [History] Simethicone [Gas-X] 160 mg PO TID PRN 12/17/16 [History] hydroCHLOROthiazide [Hydrochlorothiazide] 12.5 mg PO DAILY 12/17/16 [History] 3 Allergy/AdvReac Type Severity Reaction Status Date / Time propoxyphene [From Darvon] Allergy Itching Verified 10/23/16 09:11 morphine AdvReac Confusion Verified 12/17/16 01:18 - Meds/Allergy Pre-op Review Medications Reviewed: Yes Allergies Reviewed: Yes Beta Blockers on Current Med List: No Anesthesia Results - Labs 12/17/16 08:03 12/17/16 08:03 Anesthesia Exam O2 Sat Height 1.6 m Weight 54.431 kg Weight 54.431 kg O2 Sat by Pulse Oximetry 98 O2 Sat by Pulse Oximetry 94 O2 Sat by Pulse Oximetry 98 O2 Sat by Pulse Oximetry 96 O2 Sat by Pulse Oximetry 97 O2 Sat by Pulse Oximetry 96 O2 Sat by Pulse Oximetry 99 O2 Sat by Pulse Oximetry 99 Vital Signs Temp Pulse Resp BP Pulse Ox 97.7 F 82 18 92/64 99 12/16/16 17:52 12/16/16 17:52 12/16/16 17:52 12/16/16 17:52 12/16/16 17:52 Vital Signs/O2 Sat, Most Current Temp Pulse Resp BP Pulse Ox 98.3 F 73 18 121/75 98 12/17/16 11:20 12/17/16 11:20 12/17/16 11:20 12/17/16 11:20 12/17/16 11:20 Blood glucose: 92 Height: 5'3'' Weight: 119# NPO (# of Hours): > 8 Hrs Pain Scale: 0 Pain Scale Used: Numeric (1 - 10) - HEENT Pupil (Motor): Pupils equal, EOMI Mallampati: II Teeth: Edentulous Denture Type: Upper: Complete, Lower: Complete Oral Opening: Greater than 3 - SHAKER PLATE OPERATOR LOC: Oriented SHAKER PLATE OPERATOR Motor: Normal RUE, Normal LUE, Normal RLE, Normal LLE, Normal Face SHAKER PLATE OPERATOR Sensory: Normal: RUE, LUE, RLE, LLE, Face - Cardiac Rhythm: Regular Murmur: None JVD: No Carotid Bruit: No - Pulmonary Breath Sounds: bilateral Clear Respiratory Effort: Symmetrical Anesthesia Assess/Plan ASA Score: 3 (COPD, HTN) Modified [place] Scale for Level of Consciousness: Cooperative, oriented, and tranquil Anesthetic Plan: MAC Autologous Blood: Yes Monitoring Plan: Standard Monitors Recovery Plan: Other
[2016-12-17] MEDS ORDERED: *HR* Propofol 200 MG/20 ML VIAL IVP ONE (12:22)
[2016-12-17] MEDS ORDERED: 0.9 % Sodium Chloride 500 ML IVC SCH (14:00)
[2016-12-17] MEDS ORDERED: SODIUM CHLORIDE/NAHCO3/KCL/PEG 4,000 ML SOLN.RECON PO ONE (14:48)
[2016-12-17] MEDS ORDERED: Lidocaine -MPF 2% 5 ML VIAL INFILT ONE (14:52)
[2016-12-18] MEDS: Ondansetron 4 MG/2 ML VIAL IVP PRN ×3 (01:16→18:51)
[2016-12-18] MEDS: *HR* HYDROmorphone (PF) 1 MG/ML SYRINGE IVP PRN ×4 (01:18→23:31)
[2016-12-18] MEDS: Levofloxacin 500 MG/100 ML 500 MG/100 ML BAG IVPB SCH (01:21)
[2016-12-18 03:14] LABS: Basophils % 0.5 %; Eosinophils # 0.1 K/mcL (0.0-0.6); Eosinophils % 1.4 %; Hematocrit 35.8 % (37.5-50.1); Immature Granulocytes % 0.3 % (0-4); Immature Platelets 3.6 % (1.1-6.1); Lymphocytes # 3.2 K/mcL (0.6-4.6); Lymphocytes % 41.3 %; Mean Corpuscular HGB Conc 32.7 g/dL (31.6-35.5); Mean Corpuscular Hemoglobin 31.6 pg (28.0-33.3); Mean Corpuscular Volume 96.8 fL (83.0-100.0); Mean Platelet Volume 9.6 fL (9.4-12.4); Monocytes # 0.7 K/mcL (0.0-1.3); Monocytes % 8.6 %; Neutrophils # 3.7 K/mcL (1.6-8.9); Platelet Count 322 K/mcL (140-400); Red Cell Distribution Width 11.9 % (11.5-14.5); Segmented Neutrophils % 47.9 %
[2016-12-18 03:17] LABS: Hemoglobin 11.7 g/dL (12.9-16.9)
[2016-12-18 03:29] LABS: BUN/Creatinine Ratio 15 (6-26); Blood Urea Nitrogen 11 mg/dL (8-26); Carbon Dioxide 26 mEq/L (19-29); Chloride 109 mEq/L (98-109); Potassium 3.7 mEq/L (3.5-4.5); Sodium 138 mEq/L (136-145)
[2016-12-18 03:30] LABS: Calcium 8.7 mg/dL (8.6-10.8); Glucose 75 mg/dL (70-99); Magnesium 1.6 mg/dL (1.6-2.6); Osmolality,Calculated 284 (280-300); Phosphorous 2.2 mg/dL (2.3-4.7); eGFR For African Americans > 60 (> 60); eGFR For Non-African Americans > 60 (> 60)
[2016-12-18] MEDS: 0.9 % Sodium Chloride 1,000 ML IVC SCH ×2 (04:40→11:38)
[2016-12-18] MEDS: MetroNIDAZOLE 500 MG/100 ML 500 MG/100 ML BAG IVPB SCH ×2 (07:39→15:33)
[2016-12-18] MEDS: Aspirin 325 MG TABLET PO SCH (07:39)
[2016-12-18] MEDS: Pantoprazole 40 MG VIAL IVP SCH (07:39)
--- NOTE | 2016-12-18 10:01 | Neurology Progress Note ---
<Stan Acharya - Last Filed: 12/18/16 09:58> Date of Encounter: 12/18/16 Time of Encounter: 09:45 Assessment and Plan (1) Double vision with both eyes open Current Visit: Yes Status: Acute Patient reports double vision when both of his eyes are open. He states that the double vision is resolved when one eye is closed, suggesting binocular diplopia. He states that this has been off and on for the last 6 months. He woke yesterday with double vision that did not go away like it normally does. CT scans of the patient head show remote lacunar infarct in the basal ganglia, but no acute changes seen on CT. A small infarct in the dentate nucleus was seen on MRI, which could represent the cause of his current symptoms. Continue aspirin and statin recommend PT/OT to assist with dizziness (though he does report that this is improving) (2) Headache Current Visit: Yes Status: Acute Patient reports having headache off and on for the last 6 months that has been constant in nature. It does not appear to be associated with the diplopia that he has been experiencing. He reports that the headache starts in the back of his head and radiates into his right eye. He states that there is some photophobia with his headaches and that being aggravated generally makes his headaches worse. He has not noticed that anything makes the headaches better. Neuroimaging showed a small, acute infarct in the dentate nucleus. This is unlikely contributing to patient headache Qualifiers: Headache type: unspecified Headache chronicity pattern: chronic headache Intractability: intractable Qualified Code(s): R51 - Headache Subjective Principal diagnosis: Colitis, CVA Interval history: Patient found to have a small acute CVA in the dentate nucleus that could be the reason for his symptoms. He does report having some improvement in his diplopia today, though it is still present. He states that distance is the primary factor for his diplopia, but does admit that things will become double after he has been looking at it for some time. He does report that he has had some improvement in his dizziness and facial numbness as well. He states that there has been no improvement in his headaches. Objective - Constitutional Vitals: Temp Pulse Resp BP Pulse Ox 97.8 F 63 18 113/64 94 12/18/16 07:16 12/18/16 07:16 12/18/16 07:16 12/18/16 07:16 12/18/16 07:16 General appearance: Present: A&O X 3, pleasant, no acute distress, answers questions appropriately - Head Head exam: Present: atraumatic, normocephalic - Eye Eye exam: Present: EOMI, PERRL, sclera anicteric - Neurological Exam Sensorimotor examination: Present: intact Motor Examination: Present: full strength in all major muscle groups Motor examination - right side: 5/5: deltoids, biceps, triceps, wrist flexion, wrist extension, hardboard press operator, hip flexors, tibialis Anterior, quadriceps, toe extension (EHL), plantarflexion Motor examination - left side: 5/5: deltoids, biceps, triceps, wrist flexion, wrist extension, hip flexors, hardboard press operator, quadriceps, tibialis Anterior, toe extension (EHL), plantarflexion Sensation intact: Present: light touch (decreasedd sensation in b/l maxilla) Reflex and gait examination: intact Mental Status Examination: Present: awake, alert, oriented to person, oriented to place, oriented to time, follows commands appropriately, answers questions appropriately, no aphasia, no aproxia Cranial nerve examination: Present: PERRL, EOMI, visual ambriz intact, no facial asymmetry is present, no dysarthria, hearing is intact symmetrically, soft palate elevates bilaterally upon phonation, flexes SCM and trapezius muscles symmetrically with full power, tongue protrudes midline, no atrophy or facial fasiculations present Cerebellar examination: Present: no dysmetria, performs finger to nose and heel to badillo symmetrically without ataxia, no gait ataxia, no truncal ataxia, no difficulty with rapid alternating movements Additional comments: no diplopia when asked about fingers being held, even in his peripheral vision, but does report having continued diplopia as per HPI - VTE Documentation of Mechanical Device: Graduated compression elastic hosiery Results - Laboratory Findings CBC and BMP: 12/18/16 02:49 12/18/16 02:49 Abnormal lab findings: Abnormal lab results RBC 3.70 M/mcL (4.19-5.50) L 12/18/16 02:49 Hgb 11.7 g/dL (12.9-16.9) L D 12/18/16 02:49 Hct 35.8 % (37.5-50.1) L 12/18/16 02:49 ESR 15 mm/hr (0-10) H 12/17/16 08:03 Phosphorus 2.2 mg/dL (2.3-4.7) L 12/18/16 02:49 Urine Clarity Cloudy (Clear) A 12/16/16 18:20 Consult Discharge Plan - Plan [facility]errals: [facility]Primary Care Provider[facility] - <Andrés Slater Nita - Last Filed: 12/18/16 16:53> Date of Encounter: 12/18/16 Time of Encounter: 16:49 Assessment and Plan (1) Double vision with both eyes open Current Visit: Yes Status: Acute (2) Brainstem infarct, acute Current Visit: Yes Status: Acute Mr. Kaur did experience a small infarct in the dentate nucleus located in the yash. His deficits are already improving and I expect that he should make a full recovery. Risk factor management is going to be paramount. Statins, his antihypertensive regimen, and antiplatelet regimen going to be important. Smoking cessation is also going to be very necessary and I did make sure that I spoke with him specifically regarding this. I suggested that he take a full adult aspirin 325 mg daily. Otherwise I will return him to the care of his primary care provider for ongoing risk factor management. I will reevaluate him at your request. Subjective Interval history: The chart review, the patient was seen and examined independent. Case was discussed with Dr. Acharya. I agree with his assessment is stating above. Overall I am convinced that the diplopia which is due to the small infarct of the yash, will improve over time. I would expect that he will make a complete recovery. I did stress to him the importance of risk factor management which includes strict control of his hypertension as well as smoking cessation. Objective - Constitutional Vitals: Temp Pulse Resp BP Pulse Ox 97.8 F 89 18 130/80 94 12/18/16 16:13 12/18/16 16:13 12/18/16 16:13 12/18/16 16:13 12/18/16 16:13 - Neurological Exam Additional comments: I agree with Dr. Acharya's neurologic examination and his additional comments as stated above. Results - Laboratory Findings CBC and BMP: 12/18/16 02:49 12/18/16 02:49 Abnormal lab findings: Abnormal lab results RBC 3.70 M/mcL (4.19-5.50) L 12/18/16 02:49 Hgb 11.7 g/dL (12.9-16.9) L D 12/18/16 02:49 Hct 35.8 % (37.5-50.1) L 12/18/16 02:49 ESR 15 mm/hr (0-10) H 12/17/16 08:03 Phosphorus 2.2 mg/dL (2.3-4.7) L 12/18/16 02:49 Urine Clarity Cloudy (Clear) A 12/16/16 18:20
--- NOTE | 2016-12-18 12:50 | Anesthesia Evaluation PreOp ---
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) Other Medical History: Denies Any Significant HX Anesthesia History: Past Anesthesia (colonoscopy, EGD) Alcohol Use: none Drug use: none Medications and Allergies Albuterol Sulfate [Albuterol Inhaler] 2 puff IH Q6H PRN 12/17/16 [History] Aspirin [Lo-Dose Aspirin EC] 81 mg PO DAILY 12/17/16 [History] Carboxymethylcellulose Sodium [Refresh Tears] 1 drop BOTH EYES QID 12/17/16 [ History] Cyclobenzaprine [Flexeril] 10 mg PO TID 12/17/16 [History] Docusate Sodium [Dok] 300 mg PO HS 12/17/16 [History] FLUoxetine HCl [PROzac] 40 mg PO DAILY 12/17/16 [History] Fluticasone Propionate [Allergy Relief] 1 spr NS BID 12/17/16 [History] Gabapentin [Neurontin] 100 mg PO TID 12/17/16 [History] Lisinopril [Zestril] 10 mg PO DAILY 12/17/16 [History] [place] Carbonate 300 mg PO BID 12/17/16 [History] Meloxicam [Mobic] 7.5 mg PO DAILY 12/17/16 [History] Mometasone Furoate [Asmanex] 220 mcg IH BID 12/17/16 [History] Multivit-Min/FA/Lycopen/Lutein [A Thru Z Select Multivit Tab] 1 tab PO DAILY [History] Omeprazole [PriLOSEC] 40 mg PO DAILY 12/17/16 [History] Sildenafil Citrate [Viagra] 100 mg PO AD PRN 12/17/16 [History] Simethicone [Gas-X] 160 mg PO TID PRN 12/17/16 [History] hydroCHLOROthiazide [Hydrochlorothiazide] 12.5 mg PO DAILY 12/17/16 [History] 3 Allergy/AdvReac Type Severity Reaction Status Date / Time propoxyphene [From Darvon] Allergy Itching Verified 10/23/16 09:11 morphine AdvReac Confusion Verified 12/17/16 01:18 - Meds/Allergy Pre-op Review Medications Reviewed: Yes Allergies Reviewed: Yes Beta Blockers on Current Med List: No Anesthesia Results - Labs 12/18/16 02:49 12/18/16 02:49 Anesthesia Exam O2 Sat O2 Sat by Pulse Oximetry 95 O2 Sat by Pulse Oximetry 94 O2 Sat by Pulse Oximetry 93 O2 Sat by Pulse Oximetry 94 O2 Sat by Pulse Oximetry 97 O2 Sat by Pulse Oximetry 95 Vital Signs Temp Pulse Resp BP Pulse Ox 97.7 F 82 18 92/64 99 12/16/16 17:52 12/16/16 17:52 12/16/16 17:52 12/16/16 17:52 12/16/16 17:52 Vital Signs/O2 Sat, Most Current Temp Pulse Resp BP Pulse Ox 98.2 F 69 18 137/84 95 12/18/16 11:14 12/18/16 11:14 12/18/16 11:14 12/18/16 11:14 12/18/16 11:14 Height: 5'3'' Weight: 119# NPO (# of Hours): > 8 hrs Pain Scale: 0 Pain Scale Used: Numeric (1 - 10) - HEENT Pupil (Motor): Pupils equal, EOMI Mallampati: II Teeth: Edentulous Denture Type: Upper: Complete, Lower: Complete Oral Opening: Greater than 3 - INSURANCE INSPECTOR LOC: Oriented INSURANCE INSPECTOR Motor: Normal RUE, Normal LUE, Normal RLE, Normal LLE, Normal Face INSURANCE INSPECTOR Sensory: Normal: RUE, LUE, RLE, LLE, Face - Cardiac Rhythm: Regular Murmur: None JVD: No Carotid Bruit: No - Pulmonary Breath Sounds: bilateral Clear Respiratory Effort: Symmetrical Anesthesia Assess/Plan Modified [place] Scale for Level of Consciousness: Cooperative, oriented, and tranquil Anesthetic Plan: MAC Autologous Blood: Yes Monitoring Plan: Standard Monitors Recovery Plan: Other
[2016-12-18] MEDS ORDERED: *HR* EPINEPHrine 1 MG/10 ML SYRINGE ONE (13:50)
[2016-12-18] MEDS ORDERED: *HR* EPINEPHrine 1 MG/10 ML SYRINGE IVP PRN (13:53)
[2016-12-18] MEDS ORDERED: Ipratropium/Albuterol Neb 3 ML IH PRN (14:37)
--- NOTE | 2016-12-18 14:37 | Internal Med Progress Note ---
Date of Encounter: 12/18/16 Time of Encounter: 14:35 - Assessment and plan (1) Colitis Current Visit: Yes Status: Acute Assessment and plan: CT abdomen/pelvis showed changes suggestive of colitis. Continue IV antibiotics -Levaquin and Flagyl. GI on board. Patient underwent EGD, which shows esophagitis and gastritis. Continue PPI and Carafate. Plan for colonoscopy today due to underlying colitis, weight loss and anemia. Supportive care, pain control. Improved leukocytosis. 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 Neurology on board. Qualifiers: Headache type: unspecified Headache chronicity pattern: chronic headache Intractability: intractable Qualified Code(s): R51 - Headache (3) CVA (cerebral vascular accident) Current Visit: Yes Status: Acute Assessment and plan: Patient presented with new onset of intermittent blurred vision on opening his eyes, is associated with severe headache. CT head showed no acute abnormality. MRI brain showed a small infarct in the right dentate nucleus, which could explain his current symptoms. No focal weakness. Neurology consult appreciated , started on statin and increase aspirin to 325 mg daily. Physical and occupational therapy evaluation. Qualifiers: CVA mechanism: unspecified Qualified Code(s): I63.9 - Cerebral infarction, unspecified (4) Bipolar disorder Current Visit: Yes Status: Chronic Qualifiers: Active/Remission status: remission status unspecified Qualified Code(s): F31.9 - Bipolar disorder, unspecified (5) COPD (chronic obstructive pulmonary disease) Current Visit: Yes Status: Chronic Assessment and plan: Not in acute exacerbation. Continue when necessary bronchodilators and supplemental oxygen. Qualifiers: COPD type: unspecified COPD Qualified Code(s): J44.9 - Chronic obstructive pulmonary disease, unspecified (6) Tobacco abuse Current Visit: Yes Status: Chronic Assessment and plan: Continue nicotine transdermal patch. (7) Double vision with both eyes open Current Visit: Yes Status: Acute - Subjective Interval history: Feels hungry, just returned from colonoscopy. No nausea, vomiting, abdominal pain, but does have weight loss, chronic headache along with intermittent new onset blurred vision. - Constitutional Vitals: Temp Pulse Resp BP Pulse Ox 97.7 F 72 16 146/87 97 12/18/16 14:25 12/18/16 14:25 12/18/16 14:25 12/18/16 14:25 12/18/16 14:25 General appearance: Present: A&O X 3, answers questions appropriately - Respiratory Respiratory exam: Present: CTAB. Absent: accessory muscle use, rales, rhonchi, wheezes - Cardiovascular Cardiovascular exam: Present: RRR, +S1, +S2. Absent: diastolic murmur, gallop, rubs, systolic murmur - GI/Abdominal GI/Abdominal exam: Present: normal bowel sounds, soft, no peritoneal signs. Absent: distended, tenderness - Extremities Exam Extremities exam: Present: full ROM, warm, radial pulses palpable and symmetrical. Absent: calf tenderness, cyanotic, pedal edema Internal Medicine: Result - Labs CBC & Chem 7: 12/18/16 02:49 12/18/16 02:49 Labs: Short CBC 12/18/16 Range/Units 02:49 WBC 7.8 (4.3-11.1) K/mcL Hgb 11.7 L D (12.9-16.9) g/dL Hct 35.8 L (37.5-50.1) % Plt Count 322 (140-400) K/mcL Neutrophils # 3.7 (1.6-8.9) K/mcL BMP 12/18/16 02:49 Sodium 138 Potassium 3.7 Chloride 109 Carbon Dioxide 26 BUN 11 Creatinine 0.73 Glucose 75 Calcium 8.7 - Impressions Impressions Head CTA 12/17/16 08:59 IMPRESSION: Mild narrowing of the cavernous right internal carotid artery. Mild narrowing of the proximal P2 segment of the left posterior cerebral artery. D/ / 12/17/2016 10:42:54 Nathan Samson MD / [facility] Interpreting Provider: Nathan Samson MD Neck CTA 12/17/16 08:59 IMPRESSION: Mild atherosclerosis involving both proximal internal carotid arteries. No hemodynamically significant stenosis is appreciated within the carotid arteries. Unremarkable vertebral arteries. D/ / 12/17/2016 10:04:40 Cj Barksdale MD / [facility] Interpreting Provider: Cj Barksdale MD Brain MRI 12/17/16 18:04 IMPRESSION: Tiny acute infarction in the anterior aspect of the right dentate nucleus. Mild parenchymal volume loss. Mild to moderate chronic microvascular disease. Sinus mucosal disease. D/ / Al Urbina MD / Al Urbina MD Interpreting Provider: Al Urbina MD Abdomen Ultrasound 12/17/16 20:00 IMPRESSION: Mild gallbladder debris but no evidence of thickening to suggest acute cholecystitis. Normal biliary system and liver. D/ / 12/17/2016 20:55:50 Xiomara John MD / jaime Interpreting Provider: Xiomara John MD - VTE Documentation of Mechanical Device: Graduated compression elastic hosiery Consult Discharge Plan - Plan [facility]errals: [facility] [Primary Care Provider] -
[2016-12-18] MEDS ORDERED: *HR* Propofol 200 MG/20 ML VIAL IVP ONE (14:52)
[2016-12-18] MEDS ORDERED: Lidocaine -MPF 2% 5 ML VIAL INFILT ONE (14:52)
--- NOTE | 2016-12-18 15:18 | Electrocardiograph Report ---
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
--- NOTE | 2016-12-18 15:19 | Electrocardiograph Report ---
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
[2016-12-19] MEDS: 0.9 % Sodium Chloride 1,000 ML IVC SCH (01:19)
[2016-12-19] MEDS: MetroNIDAZOLE 500 MG/100 ML 500 MG/100 ML BAG IVPB SCH ×2 (01:19→08:46)
[2016-12-19] MEDS: Levofloxacin 500 MG/100 ML 500 MG/100 ML BAG IVPB SCH (03:12)
[2016-12-19] MEDS: Ondansetron 4 MG/2 ML VIAL IVP PRN (04:32)
[2016-12-19] MEDS: *HR* HYDROmorphone (PF) 1 MG/ML SYRINGE IVP PRN ×2 (04:32→08:52)
[2016-12-19] MEDS: Aspirin 325 MG TABLET PO SCH (08:46)
[2016-12-19] MEDS: Pantoprazole 40 MG VIAL IVP SCH (08:47)
--- NOTE | 2016-12-19 13:44 | Discharge Summary ---
Date of Encounter: 12/19/16 Time of Encounter: 12:30 - Discharge Diagnosis (1) Colitis Priority: Primary Status: Acute (2) Headache Priority: Primary Status: Chronic Qualifiers: Headache type: unspecified Headache chronicity pattern: chronic headache Intractability: intractable Qualified Code(s): R51 - Headache (3) CVA (cerebral vascular accident) Priority: Primary Status: Acute Qualifiers: CVA mechanism: unspecified Qualified Code(s): I63.9 - Cerebral infarction, unspecified (4) Bipolar disorder Priority: Secondary Status: Chronic Qualifiers: Active/Remission status: remission status unspecified Qualified Code(s): F31.9 - Bipolar disorder, unspecified (5) COPD (chronic obstructive pulmonary disease) Priority: Secondary Status: Chronic Qualifiers: COPD type: unspecified COPD Qualified Code(s): J44.9 - Chronic obstructive pulmonary disease, unspecified (6) Tobacco abuse Priority: Secondary Status: Chronic (7) Double vision with both eyes open Priority: Primary Status: Acute - Discharge Medications Prescriptions: Aspirin 325 mg PO DAILY #30 tablet levoFLOXacin [Levaquin] 500 mg PO DAILY #5 tablet metroNIDAZOLE [Flagyl] 500 mg PO TID #15 tablet Phos-NaK [Neutra-Phos] 1 each PO BID #6 powd.pack Simvastatin [Zocor] 40 mg PO HS #30 tablet Home Medications: Albuterol Sulfate [Albuterol Inhaler] 2 puff IH Q6H PRN 12/17/16 [History] Carboxymethylcellulose Sodium [Refresh Tears] 1 drop BOTH EYES QID 12/17/16 [ History] Cyclobenzaprine [Flexeril] 10 mg PO TID 12/17/16 [History] Docusate Sodium [Dok] 300 mg PO HS 12/17/16 [History] FLUoxetine HCl [Prozac] 40 mg PO DAILY 12/17/16 [History] Fluticasone Propionate [Allergy Relief] 1 spr NS BID 12/17/16 [History] Gabapentin [Neurontin] 100 mg PO TID 12/17/16 [History] Lisinopril [Zestril] 10 mg PO DAILY 12/17/16 [History] [place] Carbonate 300 mg PO BID 12/17/16 [History] Meloxicam [Mobic] 7.5 mg PO DAILY 12/17/16 [History] Mometasone Furoate [Asmanex] 220 mcg IH BID 12/17/16 [History] Multivit-Min/FA/Lycopen/Lutein [A Thru Z Select Multivit Tab] 1 tab PO DAILY [History] Omeprazole [PriLOSEC] 40 mg PO DAILY 12/17/16 [History] Sildenafil Citrate [Viagra] 100 mg PO AD PRN 12/17/16 [History] Simethicone [Gas-X] 160 mg PO TID PRN 12/17/16 [History] hydroCHLOROthiazide [Hydrochlorothiazide] 12.5 mg PO DAILY 12/17/16 [History] Aspirin 325 mg PO DAILY #30 tablet 12/19/16 [Rx] Phos-NaK [Neutra-Phos] 1 each PO BID #6 powd.pack 12/19/16 [Rx] Simvastatin [Zocor] 40 mg PO HS #30 tablet 12/19/16 [Rx] levoFLOXacin [Levaquin] 500 mg PO DAILY #5 tablet 12/19/16 [Rx] metroNIDAZOLE [Flagyl] 500 mg PO TID #15 tablet 12/19/16 [Rx] Allergies/Adverse Reactions: 3 Allergy/AdvReac Type Severity Reaction Status Date / Time propoxyphene [From Darvon] Allergy Itching Verified 10/23/16 09:11 morphine AdvReac Confusion Verified 12/17/16 01:18 Procedures/tests Complete & Pending: Procedures Performed prior 72 hours Category Date Time Status CT angio head [CT] Stat Cat Scan 12/17/16 08:59 Completed CTA Neck [CT angio neck] [CT] Stat Cat Scan 12/17/16 08:[address] without Contrast [CT head/brain wo con] [CT] Cat Scan 12/17/16 07:23 Completed Stat abdominal ultrasound - limited [US abdomen limited] [US Exams 12/17/16 20:00 Completed ] Stat MR head/brain wo con [MR] Stat MRI 12/17/16 18:04 Completed ECG 12 lead ECG [ECG] Routine Y 12/17/16 08:26 Completed Date of admission: 12/17/16 01:03 [facility] Consults: 12/17/16 08:00 Consult to Neurology [CONS] Routine Consulting Provider: Neurology [facility] Reason for Consult: acute peripheral double vision Call Completed: Yes 12/19/16 10:46 Consult to Physical Therapy [CONS] Stat Comment: Evaluate, develop and implement POC Reason for Consult: Stroke discharge 12/19/16 10:47 Consult to Occupational Therapy [CONS] Stat Comment: Evaluate, develop and implement POC Reason for Consult: stroke discharge Discharging clinician: Susan Laird Anticipated date of discharge: 12/19/16 - Patient Status Disposition: Home, Self-Care Condition: Good Functional capacity at discharge: independent ambulation Overall status at discharge: patient is progressing back to baseline - Discharge Instructions Instructions: Ulcerative Colitis (DC), Ischemic Stroke (DC) Follow Up With: [facility] [Outside] - 12/25/16 8:45 am Additional Instructions: F/up with PCP in 1-2 weeks - Diet and Activity Activity: resume usual activities as tolerated Diet: low fat, low cholesterol, low salt diet Hospital course: Mr. Kaur is a 66 year old male with the above medical problems who was admitted with dizziness, nausea and abdominal pain. CT abdomen/pelvis done in the emergency room showed possible right-sided colitis. He was started on empiric IV antibiotics-Levaquin and Flagyl. Gastroenterology was consulted and patient underwent EGD, which showed esophagitis and gastritis. He also underwent colonoscopy which showed 1.2 cm rectal polyp, diverticulosis and nonbleeding internal hemorrhoids. Patient's hemoglobin remained stable during this admission. He was also noted to have diplopia on opening his eyes along with a cute on chronic intermittent headache. CT head showed no acute abnormality but MRI brain showed small acute infarct in right dentate nucleus, which could explain his symptoms. Neurology was consulted and recommended high-dose aspirin and statin and risk factor modification, outpatient follow-up. Physical and occupational therapy evaluation was completed and patient was deemed to have no therapy needs at discharge. Patient's headache and dizziness have now significantly improved and he is medically stable for discharge with outpatient follow-up. Patient and his family were explained regarding the need to control his blood pressure, blood sugars and cholesterol and he verbalized understanding. Time spent discussing smoking cessation with patient: 3 to 10 minutes (4 min) - Time Spent with Patient Total time spent providing and/or coordinating discharge services: Greater than 30 minutes (45 min) - Constitutional Vitals: Temp Pulse Resp BP Pulse Ox 97.9 F 90 14 131/80 99 12/19/16 10:32 12/19/16 10:32 12/19/16 10:32 12/19/16 10:32 12/19/16 10:32 General appearance: Present: A&O X 3, answers questions appropriately - Respiratory Respiratory exam: Present: CTAB. Absent: accessory muscle use, rales, rhonchi, wheezes - Cardiovascular Cardiovascular exam: Present: RRR, +S1, +S2. Absent: diastolic murmur, gallop, rubs, systolic murmur - VTE Documentation of Mechanical Device: Graduated compression elastic hosiery
[2016-12-19 14:16] VITALS: BP 149/82
[2016-12-19] MEDS ORDERED: metroNIDAZOLE 500 MG TABLET PO SCH (15:00)
[2016-12-20] MEDS ORDERED: levoFLOXacin 500 MG TABLET PO SCH (09:00)
== END 2016-12-19 14:53 | disposition home or self-care (01) | DRG 391 ==
LOC: EMEROO 17:51 → 3ANU 17:51 → SUATTDRO 12-17 01:03
PROVIDERS: ADMIT Internal Medicine; ATTEND Internal Medicine
PROC: ENDOEBX (2016-12-17 13:00)

== ENCOUNTER 2017-04-18 17:46 | Inpatient (IN) ==
--- NOTE | 2017-04-18 18:09 | Emergency Department Note ---
START Narrative - START START: I examined this patient and my medical decision-making was reviewed with the Resident Physician. I agree with the documented findings, disposition and treatment plan as described except to the extent set forth below. 67 year old male presents to the ED with complaints of dog bite by his personal dog who is immunized. Yareli states that this was a few days ago and that [facility] and that the PIP joint of the left thumb now is pain on passive range of motoin and extremely swollen and draining pus. Yareli has tried outpatint therapy wiht antibiotics but it has been unsuccessful. Patient will need a hand conuslt, we emilio update his tetanus and start empiric ABX or puncture wound with vanco and zosyn IVF and admit. He likely will need a wash out of his hand. Right hand dominnant, good cap refills. [facility] did an XR (-).
[2017-04-18] MEDS ORDERED: 0.9 % Sodium Chloride 1,000 ML IVC ONE (18:11)
[2017-04-18] MEDS ORDERED: Piperacillin/Tazobactam 3.375 GM in 0.9 % Sodium Chloride Mini Bag 100 ML IVPB ONE (18:11)
[2017-04-18] MEDS ORDERED: Ampicillin/Sulbactam 1,500 MG in 0.9 % Sodium Chloride Mini Bag 100 ML IVPB ONE (18:13)
--- NOTE | 2017-04-18 18:18 | Emergency Department Note ---
Disposition Clinical Impression: Cellulitis of left thumb, Infection of tendon sheath Dog bite of left thumb with infection Qualifiers: Encounter type: initial encounter Qualified Code(s): S61.052A - Open bite of left thumb without damage to nail, initial encounter Disposition: Admitted As Inpatient Condition: Serious Time of Disposition: 23:23 Animal Bite HPI - General Chief Complaint: ED Animal Bite Stated Complaint: dog bite/infected hand Time Seen by Provider: 04/18/17 17:56 Source: patient, family Limitations: no limitations Nursing Notes Reviewed: Yes Vital Signs Reviewed: Yes - History of Present Illness HPI Narrative: 67-year-old male from the [place] presents with a dog bite to left thumb that happened 3 days ago. Patient states she was bit by his dog. He explained that his dog snapped at him suddenly while he is giving her bath. He states she has never done that, but she is an old dog of 14 years. Patient states the wound bled a lot initially. He states the swelling started. They and worsened. He now has pain and swelling in redness extending beyond his wrist to the proximal elbow on the anterior aspect of the forearm. Patient complains of subjective fevers. Patient has a medical history of COPD and chronic abdominal pain. - Related Data Home Medications Medication Instructions Recorded Confirmed Albuterol Sulfate [Albuterol 2 puff IH Q6H PRN 12/17/16 04/18/17 Inhaler] Carboxymethylcellulose Sodium 1 drop BOTH EYES QID 12/17/16 04/18/17 [Refresh Tears] Docusate Sodium [Dok] 300 mg PO HS 12/17/16 04/18/17 Fluticasone Propionate [Allergy 1 spr NS BID PRN 12/17/16 04/18/17 Relief] [place] Carbonate 300 mg PO BID 12/17/16 04/18/17 Meloxicam [Mobic] 7.5 mg PO DAILY PRN 12/17/16 04/18/17 Mometasone Furoate [Asmanex] 2 puff IH BID 12/17/16 04/18/17 Multivit-Min/FA/Lycopen/Lutein [A 1 tab PO DAILY 12/17/16 04/18/17 Thru Z Select Multivit Tab] Sildenafil Citrate [Viagra] 100 mg PO AD PRN 12/17/16 04/18/17 Simethicone [Gas-X] 160 mg PO TID PRN 12/17/16 04/18/17 hydroCHLOROthiazide 12.5 mg PO DAILY 12/17/16 04/18/17 [Hydrochlorothiazide] Aspirin Enteric Coated [Aspirin EC] 81 mg PO DAILY 04/18/17 04/18/17 Calcium Carbonate/Vitamin D3 2 each PO BID 04/18/17 04/18/17 [Calcium 250+D Tablet] FLUoxetine HCl [Prozac] 40 mg PO QAM 04/18/17 04/18/17 Lactose-Reduced Food [Ensure Plus] 1 bottle PO AD 04/18/17 04/18/17 Lidocaine Patch [Lidoderm 5% patch] 3 each TP DAILY 04/18/17 04/18/17 Metoprolol XL (24 HR) Succ [Toprol 50 mg PO DAILY 04/18/17 04/18/17 XL] Omeprazole [PriLOSEC] 40 mg PO DAILY 04/18/17 04/18/17 Tizanidine HCl 4 mg PO TID PRN 04/18/17 04/18/17 Allergies Allergy/AdvReac Type Severity Reaction Status Date / Time propoxyphene [From Darvon] Allergy Itching Verified 10/23/16 09:11 alendronate sodium AdvReac See Verified 04/18/17 20:29 [From Fosamax] Comments morphine AdvReac Confusion Verified 12/17/16 01:18 All systems ED: reviewed and negative except as stated. Review of Systems: As Per HPI Constitutional: Reports: fever. Denies: chills Gastrointestinal: Reports: nausea, diarrhea. Denies: vomiting Past Medical History - Past Medical History Attestation: Yes The following information was validated with the patient. Source: patient, nursing notes reviewed Medical history: Reports: COPD, hypertension Surgical history: Reports: no surgical history Psychiatric history: Reports: no psych history - Social History Smoking Status: Former smoker Smokeless Tobacco Status: No Alcohol use: Reports: none Drug use: Reports: none Physical Exam Vital Signs Temperature 98.3 F 04/18/17 17:46 Pulse Rate 95 04/18/17 17:46 Respiratory Rate 18 04/18/17 17:46 Blood Pressure 113/74 04/18/17 17:46 O2 Sat by Pulse Oximetry 96 04/18/17 17:46 Temperature 98.3 F 04/18/17 17:46 Pulse Rate 95 02/15/18 17:46 Respiratory Rate 18 04/18/17 17:46 Blood Pressure 113/74 04/18/17 17:46 O2 Sat by Pulse Oximetry 96 04/18/17 17:46 Oxygen Delivery Oxygen Delivery Room Air CONSTITUTIONAL: Alert and oriented X3, well-nourished, well appearing, in no apparent distress HEAD: Normocephalic; atraumatic. EYES: PERRL, no scleral icterus. NOSE: The nose is normal in appearance without rhinorrhea RESP: Normal chest excursion with respiration; breath sounds clear and equal bilaterally; no wheezes, rhonchi, or rales CARD: Regular rhythm, without murmurs, rub or gallop ABD: Non-distended; non-tender, soft,without rigidity, rebound or guarding SKIN: Normal for age and race; warm and dry; no apparent lesions EXTREMITIES: Pulses are 2 plus and equal times 4 extremities, no peripheral edema or calf muscle pain. Erythematous involving the thumb and thenar eminence with erythema extending to the distal forearm. There is tenderness along all aspects of the thumb to the proximal forearm along the anterior aspect of the forearm. Patient has intense sensation of pain with passive extension, severe tenderness to palpation at the thenar eminence, there is fusiform swelling of the thumb. There is a proximal 1.5 cm laceration along the ventral thumb at the MCP of the thumb. There is no active bleeding - General Limitations: no limitations General appearance: alert, in no apparent distress Course - Consultations Consultation #1: Dr. Feliciano of orthopedics stated to place patient on antibiotics UnaSyn and vancomycin which is already been started, and to admit to medicine to see the patient tonight if he comes into the hospital or latest, first thing in the morning. Vital Signs Temperature 98.3 F 04/18/17 17:46 Pulse Rate 95 04/18/17 17:46 Respiratory Rate 18 04/18/17 17:46 Blood Pressure 113/74 04/18/17 17:46 O2 Sat by Pulse Oximetry 96 04/18/17 17:46 Temperature 98.0 F 04/18/17 21:06 Pulse Rate 71 04/18/17 21:06 Respiratory Rate 18 04/18/17 21:06 Blood Pressure 116/80 04/18/17 21:06 O2 Sat by Pulse Oximetry 94 04/18/17 21:06 Oxygen Delivery Oxygen Delivery Room Air Animal Bite - MDM Narrative Medical decision making narrative: Dog bite resulting in possible acute tenosynovitis of the left thumb. CT of the left thumb and ordered, labs have been ordered including CBC, BMP, lactic acid. Patient has been started on Unasyn, Zosyn and vancomycin. CT results: Per radiology 1. Findings are most compatible with cellulitis, mainly involving the base of the thumb as well as the thenar eminence. 2. Convincing evidence of tenosynovitis is not detected. There is questionable very minimal fluid within the flexor pollicis longus tendon sheath, but that is uncertain. I placed a call in to consult Dr. Feliciano of Orthopedics who asked the patient to be admitted to medicine. Patient is currently doing well pain is controlled with [place]. Patient's labs only reflect an elevated WBC of 14.7 with a left shift. Dr. Gutierrez the hospitalist as accepted patient for admission at 1957 hrs. - Lab Data Lab results reviewed: Yes I reviewed the patient's lab results. Lab results narrative: Short CBC 04/18/17 Range/Units 18:26 WBC 14.7 H (4.3-11.1) K/mcL Hgb 12.8 L (12.9-16.9) g/dL Hct 37.3 L (37.5-50.1) % Plt Count 278 (140-400) K/mcL Neutrophils # 10.1 H (1.6-8.9) K/mcL BMP 04/18/17 Range/Units 18:26 Sodium 138 (136-145) mEq/L Potassium 3.8 (3.5-5.1) mEq/L Chloride 112 H (98-107) mEq/L Carbon Dioxide 23 (23-29) mEq/L BUN 13 (8-23) mg/dL Creatinine 0.75 (0.70-1.30) mg/dL Glucose 95 (70-105) mg/dL Calcium 9.0 (8.6-10.3) mg/dL Liver Function 04/18/17 Range/Units 18:26 Total Bilirubin 0.5 (0.3-1.0) mg/dL AST 13 (13-39) Units/L ALT 11 (7-52) Units/L Alkaline Phosphatase 64 (34-104) Units/L Albumin 3.7 (3.5-5.7) g/dL Result diagrams: 04/18/17 18:26 04/18/17 18:26 Lab Results 04/18/17 04/18/17 Range/Units 18:26 18:26 WBC 14.7 H (4.3-11.1) K/mcL RBC 3.98 L (4.19-5.50) M/mcL Hgb 12.8 L (12.9-16.9) g/dL Hct 37.3 L (37.5-50.1) % MCV 93.7 (83.0-100.0) fL MCH 32.2 (28.0-33.3) pg MCHC 34.3 (31.6-35.5) g/dL RDW 13.0 (11.5-14.5) % Plt Count 278 (140-400) K/mcL MPV 9.7 (9.4-12.4) fL Immature Gran % 0.3 (0-4) % Seg Neutrophils % 69.1 % Lymphocytes % 18.8 % Monocytes % 11.2 % Eosinophils % 0.3 % Basophils % 0.3 % Neutrophils # 10.1 H (1.6-8.9) K/mcL Lymphocytes # 2.8 (0.6-4.6) K/mcL Monocytes # 1.7 H (0.0-1.3) K/mcL Eosinophils # 0.1 (0.0-0.6) K/mcL Basophils # 0.1 (0.0-0.2) K/mcL Sodium 138 (136-145) mEq/L Potassium 3.8 (3.5-5.1) mEq/L Chloride 112 H (98-107) mEq/L Carbon Dioxide 23 (23-29) mEq/L BUN 13 (8-23) mg/dL Creatinine 0.75 (0.70-1.30) mg/dL Est GFR ( Amer) > 60 (> 60) Est GFR (Non-Af Amer) > 60 (> 60) BUN/Creatinine Ratio 17 (6-26) Glucose 95 (70-105) mg/dL Calculated Osmolality 286 (280-300) Calcium 9.0 (8.6-10.3) mg/dL Total Bilirubin 0.5 (0.3-1.0) mg/dL AST 13 (13-39) Units/L ALT 11 (7-52) Units/L Alkaline Phosphatase 64 (34-104) Units/L Serum Total Protein 6.4 (6.4-8.9) g/dL Albumin 3.7 (3.5-5.7) g/dL Globulin 2.7 (2.4-3.5) g/dL Albumin/Globulin Ratio 1.4 (1.1-2.2) - Radiology Data Radiology results reviewed: Yes I reviewed the patient's radiology results. Hand CT 04/18/17 18:10 IMPRESSION: 1. Findings are most compatible with cellulitis, mainly involving the base of the thumb as well as the thenar eminence. 2. Convincing evidence of tenosynovitis is not detected. There is questionable very minimal fluid within the flexor pollicis longus tendon sheath, but that is uncertain. 3. Close clinical follow-up is necessary. If the patient's symptoms should worsen, MRI would be more sensitive. D/ / Donta Snyder MD / Donta Snyder MD Interpreting Provider: Donta Snyder MD
[2017-04-18] MEDS ORDERED: Ondansetron 4 MG/2 ML VIAL IVP PRN (18:25)
[2017-04-18] MEDS ORDERED: *HR* HYDROcodone/Acet 5/325 mg TABLET PO ONE (18:25)
[2017-04-18 18:37] LABS: Basophils # 0.1 K/mcL (0.0-0.2); Basophils % 0.3 %; Eosinophils # 0.1 K/mcL (0.0-0.6); Eosinophils % 0.3 %; Hematocrit 37.3 % (37.5-50.1); Hemoglobin 12.8 g/dL (12.9-16.9); Immature Granulocytes % 0.3 % (0-4); Lymphocytes # 2.8 K/mcL (0.6-4.6); Lymphocytes % 18.8 %; Mean Corpuscular HGB Conc 34.3 g/dL (31.6-35.5); Mean Corpuscular Hemoglobin 32.2 pg (28.0-33.3); Mean Corpuscular Volume 93.7 fL (83.0-100.0); Mean Platelet Volume 9.7 fL (9.4-12.4); Monocytes # 1.7 K/mcL (0.0-1.3); Monocytes % 11.2 %; Neutrophils # 10.1 K/mcL (1.6-8.9); Platelet Count 278 K/mcL (140-400); Red Blood Count 3.98 M/mcL (4.19-5.50); Segmented Neutrophils % 69.1 %
[2017-04-18 18:55] LABS: Alanine Aminotransferase 11 Units/L (7-52); Albumin 3.7 g/dL (3.5-5.7); Albumin/Globulin Ratio 1.4 (1.1-2.2); Alkaline Phosphatase 64 Units/L (34-104); Aspartate Amino Transferase 13 Units/L (13-39); BUN/Creatinine Ratio 17 (6-26); Bilirubin,Total 0.5 mg/dL (0.3-1.0); Blood Urea Nitrogen 13 mg/dL (8-23); Carbon Dioxide 23 mEq/L (23-29); Chloride 112 mEq/L (98-107); Globulin 2.7 g/dL (2.4-3.5); Glucose 95 mg/dL (70-105); Osmolality,Calculated 286 (280-300); Potassium 3.8 mEq/L (3.5-5.1); Sodium 138 mEq/L (136-145); Total Protein 6.4 g/dL (6.4-8.9); eGFR For African Americans > 60 (> 60); eGFR For Non-African Americans > 60 (> 60)
[2017-04-18] MEDS ORDERED: Naloxone 0.4 MG/ML INJ IVP PRN (20:25)
[2017-04-18] MEDS ORDERED: Ipratropium/Albuterol Neb 3 ML IH PRN (20:29)
--- NOTE | 2017-04-18 20:38 | Internal Med History&Physical ---
Date of Encounter: 04/18/17 Time of Encounter: 20:00 Assessment and Plan (1) Cellulitis Current visit: Yes Status: Acute Orthopedics consulted. Cont vanco and unasyn. Closely monitor pt. Pt doesn't meets sepsis criteria so far. Qualifiers: Site of cellulitis: extremity Site of cellulitis of extremity: finger Laterality: left Qualified Code(s): L03.012 - Cellulitis of left finger (2) Dog bite of left thumb with infection Current visit: Yes Status: Acute Cont IV abx as above and f/u blood culture. - Tetanus prophylaxis, pt states he had recent tetanus immunization in [place] in 2017. - Rabies prophylaxis, pt was bit by home dog with full immunization, dog is hold now, w/o symptoms of rabies. Will cont to observe the dog for totally 10 days. Qualifiers: Encounter type: initial encounter Qualified Code(s): S61.052A - Open bite of left thumb without damage to nail, initial encounter; L08.9 - Local infection of the skin and subcutaneous tissue, unspecified; L08.9 - Local infection of the skin and subcutaneous tissue, unspecified; W54.0XXA - Bitten by dog, initial encounter; W54.0XXA - Bitten by dog, initial encounter (3) Flexor tenosynovitis of thumb Current visit: Yes Status: Suspected Less likely per hand CT. Cont abx. Orthopedics consult. (4) COPD (chronic obstructive pulmonary disease) Current visit: No Status: Chronic Stable, no signs of exacerbation. Duoneb as needed. Qualifiers: COPD type: unspecified COPD Qualified Code(s): J44.9 - Chronic obstructive pulmonary disease, unspecified (5) Tobacco abuse Current visit: No Status: Chronic Smoking cessation education. Nicotine patch. (6) DVT prophylaxis Current visit: Yes Status: Acute Heparin SC Internal Medicine - H&P: HPI Chief complaint: Dog bite Admitted From: Home Plans for Post Hospital Care: Home History of present illness: Mr. Kaur is a 67 year old male with Hx of bipolar, COPD, chronic colitis, present to ER for dog bite. Pt was bit by his home dog on left hand 3 days ago. Per pt, the dog is fully immuned and has no "sick" symptoms so far. Pt had left hand swelling which is getting worse although on po abx treatment. He has subjective fever. He feels warmth on left hand and forearm. In ER, he has elevated WBC, hand CT shows cellulitis. Orthopedic consult was called by ER, recommend to admit pt and start vanco and unasyn. I have discussed with pt regarding CODE STATUS, he clearly told me he doesn't want CPR or intubation, DNR/DNI placed. Past Med Surg Social Fam HX - Past Medical History Medical history: COPD, hypertension Psychiatric history: no psych history - Past Surgical History Surgical History: no surgical history - Social History Smoking Status: Former smoker Smokeless Tobacco Status: No Alcohol use: none Drug use: none - Family History Mother History Unknown: Yes Internal Medicine - H&P: Meds Albuterol Sulfate [Albuterol Inhaler] 2 puff IH Q6H PRN 12/17/16 [History] Carboxymethylcellulose Sodium [Refresh Tears] 1 drop BOTH EYES QID 12/17/16 [ History] Docusate Sodium [Dok] 300 mg PO HS 12/17/16 [History] Fluticasone Propionate [Allergy Relief] 1 spr NS BID 12/17/16 [History] [place] Carbonate 300 mg PO BID 12/17/16 [History] Meloxicam [Mobic] 7.5 mg PO DAILY 12/17/16 [History] Mometasone Furoate [Asmanex] 220 mcg IH BID 12/17/16 [History] Multivit-Min/FA/Lycopen/Lutein [A Thru Z Select Multivit Tab] 1 tab PO DAILY [History] Sildenafil Citrate [Viagra] 100 mg PO AD PRN 12/17/16 [History] Simethicone [Gas-X] 160 mg PO TID PRN 12/17/16 [History] hydroCHLOROthiazide [Hydrochlorothiazide] 12.5 mg PO DAILY 12/17/16 [History] Aspirin Enteric Coated [Aspirin EC] 81 mg PO DAILY 04/18/17 [History] Calcium Carbonate/Vitamin D3 [Calcium 250+D Tablet] 2 each PO BID 04/18/17 [ History] FLUoxetine HCl [Prozac] 40 mg PO QAM 04/18/17 [History] Lactose-Reduced Food [Ensure Plus] 1 bottle PO AD 04/18/17 [History] Lidocaine Patch [Lidoderm 5% patch] 3 each TP DAILY 02/15/18 [History] Metoprolol XL (24 HR) Succ [Toprol XL] 50 mg PO DAILY 04/18/17 [History] Omeprazole [PriLOSEC] 40 mg PO DAILY 04/18/17 [History] Tizanidine HCl 4 mg PO TID PRN 04/18/17 [History] 3 Allergy/AdvReac Type Severity Reaction Status Date / Time propoxyphene [From Darvon] Allergy Itching Verified 10/23/16 09:11 alendronate sodium AdvReac See Verified 04/18/17 20:29 [From Fosamax] Comments morphine AdvReac Confusion Verified 12/17/16 01:18 All Systems PM: A 10-system review of systems was performed and is negative for pertinent findings except as documented above in the HPI. - Constitutional Vitals: Temp Pulse Resp BP Pulse Ox 98.3 F 95 18 113/74 96 04/18/17 17:46 04/18/17 17:46 04/18/17 17:46 04/18/17 17:46 04/18/17 17:46 General appearance: Present: A&O X 3, no acute distress, answers questions appropriately - Head Head exam: Present: atraumatic, normocephalic - Eye Eye exam: Present: PERRL, conjuntiva pink, sclera anicteric Pupils: Present: PERRL - Neck Neck exam general surgery: Present: supple, trachea midline. Absent: lymphadenopathy - Respiratory Respiratory exam: Present: CTAB. Absent: accessory muscle use, rales, rhonchi, wheezes - Cardiovascular Cardiovascular exam: Present: RRR, +S1, +S2. Absent: diastolic murmur, gallop, rubs, systolic murmur - GI/Abdominal GI/Abdominal exam: Present: normal bowel sounds, soft, no peritoneal signs. Absent: distended, tenderness - Extremities Exam Extremities exam: Present: warm, radial pulses palpable and symmetrical. Absent : calf tenderness, cyanotic, pedal edema Additional comments: Left hand swelling with skin redness and warmth, dog bite wound is self closed without active bleeding or discharge. - Neurological Exam Neurological exam: Present: CN II-XII intact, oriented X3, no focal deficits. Absent: pronater drift, facial droop, speech deficit - Skin Skin exam: Present: dry, intact Internal Med - H&P Results - Labs CBC & Chem 7: 02/15/18 18:26 04/18/17 18:26
[2017-04-18] MEDS: OXYCODONE Oral CONC 10 MG/0.5 ML ORAL.SYG SL PRN (22:55)
[2017-04-19] MEDS: Ampicillin/Sulbactam 3,000 MG in 0.9 % Sodium Chloride Mini Bag 100 ML IVPB SCH ×4 (00:14→16:12)
[2017-04-19 05:41] LABS: Basophils # 0.1 K/mcL (0.0-0.2); Basophils % 0.3 %; Eosinophils # 0.2 K/mcL (0.0-0.6); Eosinophils % 1.1 %; Hematocrit 33.4 % (37.5-50.1); Immature Granulocytes % 0.4 % (0-4); Lymphocytes # 2.5 K/mcL (0.6-4.6); Lymphocytes % 17.4 %; Mean Corpuscular HGB Conc 33.5 g/dL (31.6-35.5); Mean Corpuscular Hemoglobin 32.1 pg (28.0-33.3); Mean Corpuscular Volume 95.7 fL (83.0-100.0); Mean Platelet Volume 10.4 fL (9.4-12.4); Monocytes # 1.6 K/mcL (0.0-1.3); Monocytes % 10.7 %; Neutrophils # 10.2 K/mcL (1.6-8.9); Platelet Count 279 K/mcL (140-400); Red Blood Count 3.49 M/mcL (4.19-5.50); Red Cell Distribution Width 13.3 % (11.5-14.5); Segmented Neutrophils % 70.1 %
[2017-04-19 06:06] LABS: Hemoglobin 11.2 g/dL (12.9-16.9)
[2017-04-19 06:12] LABS: BUN/Creatinine Ratio 17 (6-26); Blood Urea Nitrogen 13 mg/dL (8-23); Carbon Dioxide 21 mEq/L (23-29); Chloride 111 mEq/L (98-107); Glucose 111 mg/dL (70-105); Osmolality,Calculated 289 (280-300); Potassium 3.9 mEq/L (3.5-5.1); Sodium 139 mEq/L (136-145); eGFR For African Americans > 60 (> 60); eGFR For Non-African Americans > 60 (> 60)
[2017-04-19] MEDS: *HR* HYDROcodone/Acet 7.5/325 mg TABLET PO PRN ×3 (06:17→18:09)
[2017-04-19] MEDS: *HR* Heparin 5,000 UNIT/ML VIAL SQ SCH ×2 (06:18→16:09)
[2017-04-19] MEDS: Nicotine 21 MG PATCH.TD24 TD SCH (08:35)
[2017-04-19] MEDS: OXYCODONE Oral CONC 10 MG/0.5 ML ORAL.SYG SL PRN ×2 (08:53→20:42)
--- NOTE | 2017-04-19 13:16 | Internal Med Progress Note ---
Date of Encounter: 04/19/17 Time of Encounter: 13:15 - Assessment and plan (1) COPD (chronic obstructive pulmonary disease) Current Visit: No Status: Chronic Assessment and plan: Chronic no active wheezing Qualifiers: COPD type: emphysema Emphysema type: unspecified Qualified Code(s): J43.9 - Emphysema, unspecified (2) Tobacco abuse Current Visit: No Status: Chronic (3) Flexor tenosynovitis of thumb Current Visit: Yes Status: Acute Assessment and plan: surgery has been consulted and evaluation pending (4) Dog bite of left thumb with infection Current Visit: Yes Status: Acute Assessment and plan: History of dog bite with cellulitis and flexor tenosynovitis patient in a lot of pain from the swelling Qualifiers: Encounter type: initial encounter Qualified Code(s): S61.052A - Open bite of left thumb without damage to nail, initial encounter; L08.9 - Local infection of the skin and subcutaneous tissue, unspecified; L08.9 - Local infection of the skin and subcutaneous tissue, unspecified; W54.0XXA - Bitten by dog, initial encounter; W54.0XXA - Bitten by dog, initial encounter - Subjective Interval history: Patient with history of COPD, smoking history, patient presented to the hospital following a dog bite that happened 3 days prior to coming to the emergency room where he developed swelling and cellulitis appeared to have flexor tenosynovitis patient started on vancomycin and Zosyn Ortho surgery is consulted evaluation is pending patient is still having a lot of pain from the infection and swelling - Constitutional Vitals: Temp Pulse Resp BP Pulse Ox 97.6 F 84 16 136/90 94 04/19/17 12:27 04/19/17 12:27 04/19/17 12:27 04/19/17 12:27 04/19/17 12:27 General appearance: Present: A&O X 3, no acute distress, answers questions appropriately - Head Head exam: Present: atraumatic, normocephalic - Eye Eye exam: Present: PERRL, conjuntiva pink, sclera anicteric Pupils: Present: PERRL - Neck Neck exam general surgery: Present: supple, trachea midline. Absent: lymphadenopathy - Respiratory Respiratory exam: Present: CTAB. Absent: accessory muscle use, rales, rhonchi, wheezes - Cardiovascular Cardiovascular exam: Present: RRR, +S1, +S2. Absent: diastolic murmur, gallop, rubs, systolic murmur - GI/Abdominal GI/Abdominal exam: Present: normal bowel sounds, soft, no peritoneal signs. Absent: distended, tenderness - Extremities Exam Extremities exam: Present: tenderness, warm Internal Medicine: Result - Labs CBC & Chem 7: 04/19/17 04:11 04/19/17 04:11 Labs: Short CBC 04/19/17 Range/Units 04:11 WBC 14.5 H (4.3-11.1) K/mcL Hgb 11.2 L D (12.9-16.9) g/dL Hct 33.4 L (37.5-50.1) % Plt Count 279 (140-400) K/mcL Neutrophils # 10.2 H (1.6-8.9) K/mcL BMP 04/19/17 04:11 Sodium 139 Potassium 3.9 Chloride 111 H Carbon Dioxide 21 L BUN 13 Creatinine 0.75 Glucose 111 H Calcium 9.0 Consult Discharge Plan - Plan Referrals: [facility] [Outside]
[2017-04-19] MEDS: Acetaminophen 325 MG TABLET PO PRN (16:12)
[2017-04-19] MEDS ORDERED: Simethicone 80 MG TAB.CHEW PO PRN (16:14)
[2017-04-19] MEDS: Gabapentin 300 MG CAPSULE PO SCH ×2 (16:42→20:41)
[2017-04-19] MEDS: Beclomethasone 80mcg MDI IH SCH (20:36)
[2017-04-19] MEDS: Lithium Carbonate 300 MG CAPSULE PO SCH (20:41)
[2017-04-20] MEDS: Ampicillin/Sulbactam 3,000 MG in 0.9 % Sodium Chloride Mini Bag 100 ML IVPB SCH ×5 (01:35→23:56)
[2017-04-20] MEDS: *HR* HYDROcodone/Acet 7.5/325 mg TABLET PO PRN ×4 (01:36→22:53)
[2017-04-20] MEDS: *HR* Heparin 5,000 UNIT/ML VIAL SQ SCH ×2 (05:38→16:54)
[2017-04-20] MEDS: OXYCODONE Oral CONC 10 MG/0.5 ML ORAL.SYG SL PRN ×2 (06:11→13:56)
[2017-04-20] MEDS: Beclomethasone 80mcg MDI IH SCH ×2 (08:14→20:28)
[2017-04-20] MEDS: Gabapentin 300 MG CAPSULE PO SCH ×3 (09:02→21:18)
[2017-04-20] MEDS: FLUoxetine 20 MG CAPSULE PO SCH (09:02)
[2017-04-20] MEDS: Acetaminophen 325 MG TABLET PO PRN (09:02)
[2017-04-20] MEDS: Lithium Carbonate 300 MG CAPSULE PO SCH ×2 (09:02→21:18)
[2017-04-20] MEDS: Metoprolol XL (24 HR) Succ 50 MG TAB.ER.24H PO SCH (09:03)
[2017-04-20] MEDS: Nicotine 21 MG PATCH.TD24 TD SCH (09:03)
[2017-04-20] MEDS: Aspirin Enteric Coated 81 MG Tablet PO SCH (09:04)
--- NOTE | 2017-04-20 12:28 | Internal Med Progress Note ---
Date of Encounter: 04/20/17 Time of Encounter: 12:26 - Assessment and plan (1) COPD (chronic obstructive pulmonary disease) Current Visit: No Status: Chronic Assessment and plan: Chronic no active wheezing Qualifiers: COPD type: emphysema Emphysema type: unspecified Qualified Code(s): J43.9 - Emphysema, unspecified (2) Tobacco abuse Current Visit: No Status: Chronic (3) Flexor tenosynovitis of thumb Current Visit: Yes Status: Acute Assessment and plan: Swelling is decreased (4) Dog bite of left thumb with infection Current Visit: Yes Status: Acute Assessment and plan: We will continue IV antibiotic, Qualifiers: Encounter type: initial encounter Qualified Code(s): S61.052A - Open bite of left thumb without damage to nail, initial encounter; L08.9 - Local infection of the skin and subcutaneous tissue, unspecified; L08.9 - Local infection of the skin and subcutaneous tissue, unspecified; W54.0XXA - Bitten by dog, initial encounter; W54.0XXA - Bitten by dog, initial encounter - Subjective Interval history: Patient with history of COPD, smoking history, patient presented to the hospital following a dog bite that happened 3 days prior to coming to the emergency room where he developed swelling and cellulitis appeared to have flexor tenosynovitis patient started on vancomycin and Zosyn Ortho surgery is consulted evaluation is pending patient is still having a lot of pain from the infection and swelling Patient is seen today thumb is still swollen BUT decreased not seen yet by surgery told hand surgeon not available till saturday will consult general surgery - Constitutional Vitals: Temp Pulse Resp BP Pulse Ox 98.9 F 88 15 108/69 94 04/20/17 11:49 04/20/17 11:49 04/20/17 11:49 04/20/17 11:49 04/20/17 11:49 General appearance: Present: A&O X 3, no acute distress, answers questions appropriately - Eye Eye exam: Present: PERRL, conjuntiva pink, sclera anicteric Pupils: Present: PERRL - Neck Neck exam general surgery: Present: supple, trachea midline. Absent: lymphadenopathy - Respiratory Respiratory exam: Present: CTAB. Absent: accessory muscle use, rales, rhonchi, wheezes - Cardiovascular Cardiovascular exam: Present: RRR, +S1, +S2. Absent: diastolic murmur, gallop, rubs, systolic murmur - GI/Abdominal GI/Abdominal exam: Present: normal bowel sounds, soft, no peritoneal signs. Absent: distended, tenderness - Extremities Exam Extremities exam: Present: tenderness, warm Internal Medicine: Result - Labs CBC & Chem 7: 04/19/17 04:11 04/19/17 04:11 - VTE Documentation of Mechanical Device: Intermittent pneumatic compression device Consult Discharge Plan - Plan Referrals: [facility] [Outside] - 04/30/17 9:15 am
[2017-04-20] MEDS: Ketorolac 30 MG/ML VIAL IVP PRN ×2 (12:30→19:45)
[2017-04-21] MEDS: OXYCODONE Oral CONC 10 MG/0.5 ML ORAL.SYG SL PRN ×3 (00:53→16:51)
[2017-04-21] MEDS: Ketorolac 30 MG/ML VIAL IVP PRN ×3 (04:43→21:00)
[2017-04-21] MEDS: Ampicillin/Sulbactam 3,000 MG in 0.9 % Sodium Chloride Mini Bag 100 ML IVPB SCH ×3 (05:37→16:50)
[2017-04-21] MEDS: *HR* Heparin 5,000 UNIT/ML VIAL SQ SCH ×2 (05:39→16:51)
[2017-04-21] MEDS: Gabapentin 300 MG CAPSULE PO SCH ×3 (07:44→20:59)
[2017-04-21] MEDS: Lithium Carbonate 300 MG CAPSULE PO SCH ×2 (07:44→20:59)
[2017-04-21] MEDS: Metoprolol XL (24 HR) Succ 50 MG TAB.ER.24H PO SCH (07:44)
[2017-04-21] MEDS: *HR* HYDROcodone/Acet 7.5/325 mg TABLET PO PRN ×3 (07:44→21:01)
[2017-04-21] MEDS: Aspirin Enteric Coated 81 MG Tablet PO SCH (07:44)
[2017-04-21] MEDS: FLUoxetine 20 MG CAPSULE PO SCH (07:45)
[2017-04-21 07:49] LABS: Hematocrit 34.7 % (37.5-50.1); Hemoglobin 11.5 g/dL (12.9-16.9); Mean Corpuscular HGB Conc 33.1 g/dL (31.6-35.5); Mean Corpuscular Hemoglobin 31.9 pg (28.0-33.3); Mean Corpuscular Volume 96.1 fL (83.0-100.0); Platelet Count 278 K/mcL (140-400); Red Blood Count 3.61 M/mcL (4.19-5.50); Red Cell Distribution Width 12.5 % (11.5-14.5)
[2017-04-21] MEDS: Nicotine 21 MG PATCH.TD24 TD SCH (07:50)
[2017-04-21] MEDS: Beclomethasone 80mcg MDI IH SCH ×2 (08:34→23:18)
--- NOTE | 2017-04-21 16:48 | Internal Med Progress Note ---
Date of Encounter: 04/21/17 Time of Encounter: 16:40 - Assessment and plan (1) Dog bite of left thumb with infection Current Visit: Yes Status: Acute Assessment and plan: patient is afebrile, swelling is improving, WBC trending down. I called Dr Feliciano he is going to see the patient continue vancomycin and zosyn Qualifiers: Encounter type: initial encounter Qualified Code(s): S61.052A - Open bite of left thumb without damage to nail, initial encounter; L08.9 - Local infection of the skin and subcutaneous tissue, unspecified; L08.9 - Local infection of the skin and subcutaneous tissue, unspecified; W54.0XXA - Bitten by dog, initial encounter; W54.0XXA - Bitten by dog, initial encounter (2) COPD (chronic obstructive pulmonary disease) Current Visit: No Status: Chronic Assessment and plan: Chronic no active wheezing Qualifiers: COPD type: emphysema Emphysema type: unspecified Qualified Code(s): J43.9 - Emphysema, unspecified (3) Tobacco abuse Current Visit: No Status: Chronic - Subjective Interval history: Patient was admitted for left thumb cellulitis after dog bite. He was started antibiotics ( vancomycin and zosyn), swelling improved. Initially general surgery was consulted and they recommended to consult orthopedic surgery. But Orthopediac surgeon was not called over the last [address] Feliciano who knew the case from ER, and he is going to see the patient right now. - Constitutional Vitals: Temp Pulse Resp BP Pulse Ox 98 F 70 14 160/96 97 04/21/17 16:26 04/21/17 16:26 04/21/17 16:26 04/21/17 16:26 04/21/17 16:26 General appearance: Present: A&O X 3, no acute distress, answers questions appropriately Exam: CONSTITUTIONAL: patient appears as an age appropriate male in no acute distress. EYES Clear sclerae, bilateral pupils are equal, reactive to light. EMOI. RESPIRATORY: No accessory muscle use, bilateral clear to auscultation, no wheezing, no crackles/rales. CARDIOVASCULAR: Regular heart rate, normal S1 and S2, no murmurs GASTROINTESTINAL: bowel sounds present, soft, no tenderness. MUSCULOSKELETAL: Joints in normal range of motion, no clubbing, no edema, no cyanosis. Bilateral peripheral pulses 2+. NEUROLOGIC: CN II to XII are grossly intact, no focal neurological deficit. Internal Medicine: Result - Labs CBC & Chem 7: 04/21/17 07:10 04/19/17 04:11 Labs: Short CBC 04/21/17 Range/Units 07:10 WBC 8.6 (4.3-11.1) K/mcL Hgb 11.5 L (12.9-16.9) g/dL Hct 34.7 L (37.5-50.1) % Plt Count 278 (140-400) K/mcL - VTE Documentation of Mechanical Device: Intermittent pneumatic compression device Consult Discharge Plan - Plan Referrals: [facility] [Outside] - 04/30/17 9:15 am
--- NOTE | 2017-04-21 18:09 | Orthopedic Consult Note ---
Date of Encounter: 04/21/17 Time of Encounter: 18:09 History of Present Illness Chief complaint: Left thumb pain and swelling HPI: Mr. Kaur is a 67 year old [id number] male who sustained a dog bite on his left thumb about 5 days ago. This was his own dog. He states that the dog was generally. Gentle, he was working on her ears when she turned and bit him. She is up-to-date on all immunizations etc. Patient's states that he developed progressive pain and swelling present to the emergency room in the evening of 04/18/2017, at that time he was noted to have an elevated white blood cell count and a CT scan that revealed evidence of cellulitis. He was admitted for intravenous antibiotics. Patient states that he did squeeze out some pus 48 hours ago. He states the thumb is much improved currently over where it had been. He just describes some swelling and some limitation in motion. Denies numbness or tingling. I reviewed the complete history and physical examination. Please see the completed portion of the medical record for those details. Pertinent orthopedic examination reveals an edematous and minimally erythematous left thumb. The patient has an opening on the flexor crease of the interphalangeal joint. This is draining only some serous fluid and blood when evaluated. No evidence of purulence. I do not appreciate any fluctuant areas. Neurosensory exam is intact. No epitrochlear nodes. I reviewed laboratory data. This includes a white blood cell count that has responded well from a 14.7 high to currently 8.6. He has been afebrile since admission. I did review the CT scan. This shows swelling about the thumb. No evidence of bony destruction. No discrete pocket or abscess. It appears to have a reactive type synovitis of the FPL tendon sheath. Impression: Dog bite left thumb Recommendation: At this time the wound is draining and the patient is responding well to intravenous antibiotics. 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 I will probably continue the intravenous antibiotics for 24 hours, if the patient continues to improve probably able to discharge on Augmentin 875 twice a day and either Bactrim or clindamycin for MRSA coverage. I will see the patient in about 48 hours after discharge in the office as an outpatient. Any further intervention would be dictated based upon his clinical response. Thank you for allowing me to see care for Mr. Kaur. I am sorry about the confusion in having this consultation in a timely manner. Sincerely, Stan Feliciano,DO Past Med Surg Social Fam HX - Past Medical History Medical history: COPD, hypertension Psychiatric history: no psych history - Past Surgical History Surgical History: no surgical history - Social History Smoking Status: Former smoker Smokeless Tobacco Status: No Alcohol use: none Drug use: none - Family History Mother History Unknown: Yes Medications and Allergies Albuterol Sulfate [Albuterol Inhaler] 2 puff IH Q6H PRN 12/17/16 [History] Carboxymethylcellulose Sodium [Refresh Tears] 1 drop BOTH EYES QID 12/17/16 [ History] Fluticasone Propionate [Allergy Relief] 1 spr NS BID PRN 12/17/16 [History] [place] Carbonate 300 mg PO BID 12/17/16 [History] Meloxicam [Mobic] 7.5 mg PO DAILY PRN 12/17/16 [History] Mometasone Furoate [Asmanex] 2 puff IH BID 12/17/16 [History] Multivit-Min/FA/Lycopen/Lutein [A Thru Z Select Multivit Tab] 1 tab PO DAILY [History] Sildenafil Citrate [Viagra] 100 mg PO AD PRN 12/17/16 [History] Simethicone [Gas-X] 160 mg PO TID PRN 12/17/16 [History] Aspirin Enteric Coated [Aspirin EC] 81 mg PO DAILY 04/18/17 [History] Calcium Carbonate/Vitamin D3 [Calcium 250+D Tablet] 2 each PO BID 04/18/17 [ History] FLUoxetine HCl [Prozac] 40 mg PO QAM 04/18/17 [History] Lactose-Reduced Food [Ensure Plus] 1 bottle PO AD 04/18/17 [History] Lidocaine Patch [Lidoderm 5% patch] 3 each TP DAILY 04/18/17 [History] Metoprolol XL (24 HR) Succ [Toprol XL] 50 mg PO DAILY 04/18/17 [History] Omeprazole [PriLOSEC] 40 mg PO DAILY 04/18/17 [History] Tizanidine HCl 4 mg PO TID PRN 04/18/17 [History] Gabapentin [Gralise] 300 mg PO TID 04/19/17 [History] 3 Allergy/AdvReac Type Severity Reaction Status Date / Time propoxyphene [From Darvon] Allergy Itching Verified 10/23/16 09:11 alendronate sodium AdvReac See Verified 04/18/17 20:29 [From Fosamax] Comments morphine AdvReac Confusion Verified 12/17/16 01:18 All Systems Reviewed: A 10-system review of systems was performed and is negative for pertinent findings except as documented above in the HPI. Physical Exam - Constitutional Vitals: Temp Pulse Resp BP Pulse Ox 98 F 70 14 160/96 97 04/21/17 16:26 04/21/17 16:26 04/21/17 16:26 04/21/17 16:26 04/21/17 16:26 Results - Labs Result Diagrams: 04/21/17 07:10 04/19/17 04:11 Labs: Abnormal lab results RBC 3.61 M/mcL (4.19-5.50) L 04/21/17 07:10 Hgb 11.5 g/dL (12.9-16.9) L 04/21/17 07:10 Hct 34.7 % (37.5-50.1) L 04/21/17 07:10 Neutrophils # 10.2 K/mcL (1.6-8.9) H 04/19/17 04:11 Monocytes # 1.6 K/mcL (0.0-1.3) H 04/19/17 04:11 Chloride 111 mEq/L (98-107) H 04/19/17 04:11 Carbon Dioxide 21 mEq/L (23-29) L 04/19/17 04:11 Glucose 111 mg/dL (70-105) H 04/19/17 04:11 H & H 04/21/17 Range/Units 07:10 Hgb 11.5 L (12.9-16.9) g/dL Hct 34.7 L (37.5-50.1) % All other labs normal. - Diagnostic results Wrist/Hand CT: report reviewed, image reviewed Consult Discharge Plan - Plan Referrals: [facility] [Outside] - 04/30/17 9:15 am
[2017-04-21 20:02] LABS: BUN/Creatinine Ratio 16 (6-26); Blood Urea Nitrogen 15 mg/dL (8-23); eGFR For African Americans > 60 (> 60); eGFR For Non-African Americans > 60 (> 60)
--- NOTE | 2017-04-21 23:39 | Event Note ---
Date of Encounter: 04/21/17 Time of Encounter: 23:15 I was called to patient's room by his nurse. Pt. stated he wanted to change his code status from DRNCCA DNI to Full Code because he thought he would receive better treatment and care. I explained that code status had nothing to do with quality of care and asked patient about his concerns. He stated that no one had done anything with his left thumb which is infected due to his dog biting him and he was very concerned that the thumb still looked very infected. Per patient 's wishes, I examined the thumb which is erythematous and edematous with discharge. Culture kit was obtained and the wound was cultured with stat order. Wound care consult and daily wound care ordered as well. Pts. code status is now Full Code in compliance with the patient's wishes.
[2017-04-22] MEDS: OXYCODONE Oral CONC 10 MG/0.5 ML ORAL.SYG SL PRN ×2 (00:25→10:31)
[2017-04-22] MEDS: Ampicillin/Sulbactam 3,000 MG in 0.9 % Sodium Chloride Mini Bag 100 ML IVPB SCH ×5 (00:30→23:58)
[2017-04-22] MEDS: *HR* Heparin 5,000 UNIT/ML VIAL SQ SCH ×2 (06:35→19:06)
[2017-04-22] MEDS: *HR* HYDROcodone/Acet 7.5/325 mg TABLET PO PRN ×3 (06:40→21:25)
[2017-04-22] MEDS: Ketorolac 30 MG/ML VIAL IVP PRN (06:41)
[2017-04-22] MEDS: Beclomethasone 80mcg MDI IH SCH ×2 (07:59→20:47)
[2017-04-22] MEDS: Nicotine 21 MG PATCH.TD24 TD SCH (09:55)
[2017-04-22] MEDS: Gabapentin 300 MG CAPSULE PO SCH ×3 (09:56→21:22)
[2017-04-22] MEDS: Aspirin Enteric Coated 81 MG Tablet PO SCH (09:56)
[2017-04-22] MEDS: Lithium Carbonate 300 MG CAPSULE PO SCH ×2 (09:56→21:23)
[2017-04-22] MEDS: FLUoxetine 20 MG CAPSULE PO SCH (09:56)
[2017-04-22] MEDS: Metoprolol XL (24 HR) Succ 50 MG TAB.ER.24H PO SCH (09:56)
--- NOTE | 2017-04-22 12:19 | Internal Med Progress Note ---
Date of Encounter: 04/22/17 Time of Encounter: 12:17 - Assessment and plan (1) Dog bite of left thumb with infection Current Visit: Yes Status: Acute Assessment and plan: patient is afebrile, swelling is improving, WBC trending down. I called Dr Feliciano he is going to see the patient continue vancomycin and zosyn Dr Feliciano was consulted, he saw the patient yesterday I paged Dr Feliciano this smorning, and spoke to his offcer , ;to [facility] NPO, Dr Feliciano will see the patient kthis afternoon after clinic. Qualifiers: Encounter type: initial encounter Qualified Code(s): S61.052A - Open bite of left thumb without damage to nail, initial encounter; L08.9 - Local infection of the skin and subcutaneous tissue, unspecified; L08.9 - Local infection of the skin and subcutaneous tissue, unspecified; W54.0XXA - Bitten by dog, initial encounter; W54.0XXA - Bitten by dog, initial encounter (2) COPD (chronic obstructive pulmonary disease) Current Visit: No Status: Chronic Assessment and plan: Chronic no active wheezing Qualifiers: COPD type: emphysema Emphysema type: unspecified Qualified Code(s): J43.9 - Emphysema, unspecified (3) Tobacco abuse Current Visit: No Status: Chronic Assessment and plan: Smoking cessation discussed - Subjective Interval history: Patient was admitted for left thumb cellulitis after dog bite. He was started antibiotics ( vancomycin and zosyn), swelling improved. Initially general surgery was consulted and they recommended to consult orthopedic surgery. But Orthopediac surgeon was not called over the last 2 days. Patient states that his thumb pain got worse over the night, left thumb is a very swelling and a bright red with pus draining. I did not see any improvement since yesterday. Patient does not want to go home. I will call Dr Feliciano. I got call back from Dr Feliciano's office, was told to keep the patient NPO, Dr Feliciano will see the patient afternoon. I went to patient room, he just did lunch. - Constitutional Vitals: Temp Pulse Resp BP Pulse Ox 98.3 F 71 16 156/87 96 04/22/17 10:40 04/22/17 10:40 04/22/17 10:40 04/22/17 10:40 04/22/17 10:40 General appearance: Present: A&O X 3, no acute distress, answers questions appropriately Exam: CONSTITUTIONAL: patient appears as an age appropriate male in no acute distress. EYES Clear sclerae, bilateral pupils are equal, reactive to light. EMOI. RESPIRATORY: No accessory muscle use, bilateral clear to auscultation, no wheezing, no crackles/rales. CARDIOVASCULAR: Regular heart rate, normal S1 and S2, no murmurs GASTROINTESTINAL: bowel sounds present, soft, no tenderness. MUSCULOSKELETAL: Joints in normal range of motion, no clubbing, no edema, no cyanosis. Bilateral peripheral pulses 2+. NEUROLOGIC: CN II to XII are grossly intact, no focal neurological deficit. Internal Medicine: Result - Labs CBC & Chem 7: 04/21/17 07:10 04/21/17 19:18 Labs: BMP 04/21/17 19:18 BUN 15 Creatinine 0.95 - VTE Documentation of Mechanical Device: Intermittent pneumatic compression device Consult Discharge Plan - Plan Referrals: [facility] [Outside] - 04/30/17 9:15 am
--- NOTE | 2017-04-22 18:53 | Orthopedics Progress Note ---
Date of Encounter: 04/22/17 Time of Encounter: 18:49 Subjective Principal diagnosis: Dog bite left thumb with cellulitis Interval history: 04/22/2017. Patient states that he is had some persistent drainage. Upon clarification this has been predominantly serous type fluid. Patient states that the f thumb is improving. Vital signs are stable. Patient is afebrile. Thumb looks improved. Less erythema and ruborous changes. The volar side of the thumb just proximal to the IPJ is somewhat macerated. It is draining serous type fluid. No evidence of purulence. I do not appreciate any fluctuant areas. Impression: Dog bite left thumb, resolving cellulitis Recommendation: I discussed with the patient that his bone to see slow gradual improvement. I do not anticipate him seeing an immediate overnight interval change. I also recommended to him that he stop manipulating the thumb as much as possible was [place] causing tissue trauma which is going to delay the process. As long as the thumb is draining we do not need to intervene surgically. I discussed that we will probably need to be on antibiotics for anywhere from 2-3 weeks or more and that at some point time he may require surgical intervention that this current time I do not think it is indicated. I also recommend that he keep the thumb covered with a loose Band-Aid or absorbent dressing trying to avoid any excessive compression upon the area. As noted previously would recommend that patient be discharged on Augmentin 875 twice a day for probable pasteurella infection as well as Bactrim or gentamicin for the possibility of MRSA though this is doubtful. The patient was discharged in the next day or so would recommend he follow up with me the beginning of next week. Objective Vital signs: Vital Signs Temp Pulse Resp BP Pulse Ox 04/22/17 15:06 98.0 F 68 14 137/76 95 04/22/17 10:40 98.3 F 71 16 156/87 96 04/22/17 08:15 98.4 F 67 14 150/94 94 04/22/17 08:00 16 95 04/22/17 03:43 97.7 F 75 16 152/83 94 04/21/17 23:18 16 94 04/21/17 21:02 97.7 F 70 18 162/86 94 Intake and Output 04/22/17 04/22/17 04/22/17 07:59 15:59 23:59 Intake Total 200 / 200 1080 / 1080 Output Total 0 / 0 0 / 0 Balance 200 / 200 1080 / 1080 Intake: IV Fluids 200 / 200 Unasyn 3,000 MG In 0.9 % Sodium 200 / 200 Chloride (Mini-Bag +) 100 ML @ 200 mls/hr IVPB Q6HR ELEN Rx#: [id number] Oral 0 / 0 1080 / 1080 Output: Urine 0 / 0 0 / 0 Other: Meal Lunch NPO Percent of Meal Consumed 10% # Voids 1 Weight 72.3 kg Patient Weight 04/22/17 23:59 Weight 72.3 kg - Labs CBC & BMP: 04/21/17 07:10 04/21/17 19:18 Labs: Abnormal lab results RBC 3.61 M/mcL (4.19-5.50) L 04/21/17 07:10 Hgb 11.5 g/dL (12.9-16.9) L 04/21/17 07:10 Hct 34.7 % (37.5-50.1) L 04/21/17 07:10 Neutrophils # 10.2 K/mcL (1.6-8.9) H 04/19/17 04:11 Monocytes # 1.6 K/mcL (0.0-1.3) H 04/19/17 04:11 Chloride 111 mEq/L (98-107) H 04/19/17 04:11 Carbon Dioxide 21 mEq/L (23-29) L 04/19/17 04:11 Glucose 111 mg/dL (70-105) H 04/19/17 04:11 - VTE Documentation of Mechanical Device: Intermittent pneumatic compression device Consult Discharge Plan - Plan Referrals: [facility] [Outside] - 04/30/17 9:15 am
[2017-04-23 03:52] VITALS: BP 137/80
[2017-04-23] MEDS: Ampicillin/Sulbactam 3,000 MG in 0.9 % Sodium Chloride Mini Bag 100 ML IVPB SCH ×2 (05:58→11:33)
[2017-04-23] MEDS: *HR* HYDROcodone/Acet 7.5/325 mg TABLET PO PRN (05:59)
[2017-04-23] MEDS: *HR* Heparin 5,000 UNIT/ML VIAL SQ SCH (05:59)
[2017-04-23] MEDS: Beclomethasone 80mcg MDI IH SCH (07:33)
[2017-04-23] MEDS: Nicotine 21 MG PATCH.TD24 TD SCH (08:35)
[2017-04-23] MEDS: Gabapentin 300 MG CAPSULE PO SCH (08:36)
[2017-04-23] MEDS: Metoprolol XL (24 HR) Succ 50 MG TAB.ER.24H PO SCH (08:36)
[2017-04-23] MEDS: Aspirin Enteric Coated 81 MG Tablet PO SCH (08:36)
[2017-04-23] MEDS: Lithium Carbonate 300 MG CAPSULE PO SCH (08:36)
[2017-04-23] MEDS: FLUoxetine 20 MG CAPSULE PO SCH (08:36)
[2017-04-23] MEDS: OXYCODONE Oral CONC 10 MG/0.5 ML ORAL.SYG SL PRN (11:34)
--- NOTE | 2017-04-23 13:08 | Discharge Summary ---
- NOTES TO OUTPATIENT PROVIDER Notes to Outpatient Provider: F/up left thumb infection s/p dogbite clinically Orders not resulted at time of discharge: Pending orders 04/18/17 22:17 Consult to Nutrition [CONS] Stat 04/21/17 00:20 Culture,Wound [RM] Stat 04/21/17 17:34 Consult to Physician [CONS] Routine 04/21/17 17:44 Consult to Orthopedic Surgery [CONS] Routine Date of Encounter: 04/23/17 Time of Encounter: 13:07 - Discharge Diagnosis (1) Cellulitis of left thumb Priority: Primary Status: Acute (2) Dog bite of left thumb with infection Priority: Primary Status: Acute Qualifiers: Encounter type: initial encounter Qualified Code(s): S61.052A - Open bite of left thumb without damage to nail, initial encounter; L08.9 - Local infection of the skin and subcutaneous tissue, unspecified; L08.9 - Local infection of the skin and subcutaneous tissue, unspecified; W54.0XXA - Bitten by dog, initial encounter; W54.0XXA - Bitten by dog, initial encounter (3) CVA (cerebral vascular accident) Priority: Secondary Status: Inactive Qualifiers: CVA mechanism: unspecified Qualified Code(s): I63.9 - Cerebral infarction, unspecified (4) COPD (chronic obstructive pulmonary disease) Priority: Secondary Status: Chronic Qualifiers: COPD type: emphysema Emphysema type: unspecified Qualified Code(s): J43.9 - Emphysema, unspecified (5) Tobacco abuse Priority: Secondary Status: Chronic Hospital course: Mr. Kaur is a 67 year old male with the above medical problems who was admitted with dogbite wound to left thumb. CT left hand showed cellulitis, mainly involving the base of the thumb and thenar eminence. He was started on IV antibiotics- vancomycin and Unasyn. Patient initially had significant pain and swelling, which is currently much improved. Orthopedic surgery was consulted, agreed with IV antibiotics, recommended no surgical intervention. Blood and wound cultures showed no bacterial growth. Patient is no medically stable for discharge with oral antibiotics-Augmentin and Bactrim. He will follow up with orthopedic surgery as an outpatient. Discharge discussed with: patient - Time Spent with Patient Total time spent providing and/or coordinating discharge services: Greater than 30 minutes (45 min) - Discharge Medications Prescriptions: Amoxicillin/Clavulanate [Augmentin] 875 mg PO BIDWM #28 tablet HYDROcodone/Acet 5/325 mg [[place] 5-325 mg] 1 tab PO Q6H PRN 5 Days #10 tab PRN Reason: Pain Sulfamethoxazole/Trimeth DS [Bactrim DS] 1 each PO BID #28 tablet Home Medications: Albuterol Sulfate [Albuterol Inhaler] 2 puff IH Q6H PRN 12/17/16 [History] Carboxymethylcellulose Sodium [Refresh Tears] 1 drop BOTH EYES QID 12/17/16 [ History] Fluticasone Propionate [Allergy Relief] 1 spr NS BID PRN 12/17/16 [History] [place] Carbonate 300 mg PO BID 12/17/16 [History] Meloxicam [Mobic] 7.5 mg PO DAILY PRN 12/17/16 [History] Mometasone Furoate [Asmanex] 2 puff IH BID 12/17/16 [History] Multivit-Min/FA/Lycopen/Lutein [A Thru [employer] Multivit Tab] 1 tab PO DAILY [History] Sildenafil Citrate [Viagra] 100 mg PO AD PRN 12/17/16 [History] Simethicone [Gas-X] 160 mg PO TID PRN 12/17/16 [History] Aspirin Enteric Coated [Aspirin EC] 81 mg PO DAILY 04/18/17 [History] Calcium Carbonate/Vitamin D3 [Calcium 250+D Tablet] 2 each PO BID 04/18/17 [ History] FLUoxetine HCl [Prozac] 40 mg PO QAM 04/18/17 [History] Lactose-Reduced Food [Ensure Plus] 1 bottle PO AD 04/18/17 [History] Lidocaine Patch [Lidoderm 5% patch] 3 each TP DAILY 04/18/17 [History] Metoprolol XL (24 HR) Succ [Toprol Xl] 50 mg PO DAILY 04/18/17 [History] Omeprazole [PriLOSEC] 40 mg PO DAILY 04/18/17 [History] Tizanidine HCl 4 mg PO TID PRN 04/18/17 [History] Gabapentin [Gralise] 300 mg PO TID 04/19/17 [History] Amoxicillin/Clavulanate [Augmentin] 875 mg PO BIDWM #28 tablet 04/23/17 [Rx] HYDROcodone/Acet 5/325 mg [[place] 5-325 mg] 1 tab PO Q6H PRN 5 Days #10 tab 04/23 [Rx] Sulfamethoxazole/Trimeth DS [Bactrim DS] 1 each PO BID #28 tablet 04/23/17 [Rx] Allergies/Adverse Reactions: 3 Allergy/AdvReac Type Severity Reaction Status Date / Time propoxyphene [From Darvon] Allergy Itching Verified 10/23/16 09:11 alendronate sodium AdvReac See Verified 04/18/17 20:29 [From Fosamax] Comments morphine AdvReac Confusion Verified 12/17/16 01:18 Date of admission: 04/18/17 20:25 [facility] care physician: [facility] Consults: 04/18/17 22:17 Consult to Nutrition [CONS] Stat Comment: Consulting Provider: NUTRITION Reason for Dietary Consult: MST Score 04/21/17 17:34 Consult to Physician [CONS] Routine Consulting Provider: Stan Feliciano Reason for Consult: thumb infection Call Completed: Yes 04/21/17 17:44 Consult to Orthopedic Surgery [CONS] Routine Consulting Provider: Orthopedic [facility] Sports Medicine Reason for Consult: left thumb, dog bite and cellulitis Time Notified: 17:00 Call Completed: Yes Discharging clinician: Susan Laird Anticipated date of discharge: 04/23/17 - Constitutional Vitals: Temp Pulse Resp BP Pulse Ox 98.7 F 71 16 137/80 93 04/23/17 03:46 04/23/17 03:46 04/23/17 07:33 04/23/17 03:46 04/23/17 07:33 General appearance: Present: A&O X 3, answers questions appropriately - Cardiovascular Cardiovascular exam: Present: RRR, +S1, +S2. Absent: diastolic murmur, gallop, rubs, systolic murmur - Extremities Exam Extremities exam: Present: warm, radial pulses palpable and symmetrical. Absent : calf tenderness, cyanotic, pedal edema Additional comments: left thumb with diffuse edema, improving tenderness per patient; currently dry but intermittently has serous drainage per patient and previous notes; - Patient Status Disposition: Home, Self-Care Condition: Good Functional capacity at discharge: independent ambulation Overall status at discharge: patient is progressing back to baseline - Discharge Instructions Follow Up With: [facility] [Outside] - 04/30/17 9:15 am Stan Feliciano DO [Non-Partnered Physician] - 04/29/17 2:00 pm Additional Instructions: F/up with - Orthopedics in 2 weeks - Diet and Activity Activity: resume usual activities as tolerated Diet: low fat, low cholesterol, low salt diet - VTE Documentation of Mechanical Device: Intermittent pneumatic compression device
[2017-04-23] MEDS ORDERED: Aminoglycoside Consult 1 EACH MC ONE (14:17)
== END 2017-04-23 14:18 | disposition home or self-care (01) | DRG 603 ==
LOC: 3ANU 17:46 → EMEROO 17:46 → SUATTDRO 20:25 → 3ANU 20:57
PROVIDERS: ADMIT Internal Medicine; ATTEND Internal Medicine

== ENCOUNTER 2019-11-30 12:13 | Observation (INO) ==
[2019-11-30 13:48] LABS: Basophils # 0.1 K/mcL (0.0-0.2); Basophils % 0.7 %; Eosinophils # 0.1 K/mcL (0.0-0.6); Eosinophils % 1.2 %; Hemoglobin 14.5 g/dL (12.9-16.9); Immature Granulocytes % 0.4 % (0-4); Lymphocytes # 2.4 K/mcL (0.6-4.6); Lymphocytes % 33.2 %; Mean Corpuscular HGB Conc 33.7 g/dL (31.6-35.5); Mean Corpuscular Hemoglobin 33.3 pg (28.0-33.3); Mean Corpuscular Volume 98.6 fL (83.0-100.0); Mean Platelet Volume 9.3 fL (9.4-12.4); Monocytes # 0.7 K/mcL (0.0-1.3); Monocytes % 9.1 %; Platelet Count 336 K/mcL (140-400); Red Blood Count 4.36 M/mcL (4.19-5.50); Red Cell Distribution Width 12.1 % (11.5-14.5); Segmented Neutrophils % 55.4 %; White Blood Count 7.3 K/mcL (4.3-11.1)
[2019-11-30] MEDS ORDERED: Isovue-370 500 ML BOTTLE IVP ONE ×2 (13:51→15:50)
[2019-11-30] MEDS ORDERED: *HR* FentaNYL (PF) 100 MCG/2 ML VIAL IVP ONE (13:52)
[2019-11-30 13:56] LABS: Prothrombin Time 11.6 Seconds (9.4-12.1)
[2019-11-30 13:58] LABS: Activated Partial Thrombo Time 36.2 Seconds (26.0-36.0)
[2019-11-30 14:08] LABS: BUN/Creatinine Ratio 19 (6-26); Blood Urea Nitrogen 15 mg/dL (8-23); Calcium 9.8 mg/dL (8.6-10.3); Carbon Dioxide 27 mEq/L (23-29); Chloride 106 mEq/L (98-107); Glucose 93 mg/dL (70-105); Osmolality,Calculated 289 (280-300); Potassium 3.8 mEq/L (3.5-5.1); Sodium 139 mEq/L (136-145); Troponin I < 0.03 ng/mL (< 0.04); eGFR For African Americans > 60 (> 60); eGFR For Non-African Americans > 60 (> 60)
[2019-11-30] MEDS ORDERED: Piperacillin/Tazobactam 3.375 GM in 0.9 % Sodium Chloride Mini Bag 100 ML IVPB ONE (16:15)
[2019-11-30] MEDS ORDERED: Naloxone 0.4 MG/ML INJ IVP PRN (17:03)
[2019-11-30] MEDS ORDERED: Ondansetron 4 MG/2 ML VIAL IVP PRN (17:03)
[2019-11-30] MEDS ORDERED: Acetaminophen 325 MG TABLET PO PRN (17:03)
[2019-11-30] MEDS ORDERED: Perflutren Lipid Microsphere 1.3 ML in 0.9 % Sodium Chloride 8.7 ML IVP PRN (17:07)
[2019-11-30 17:36] LABS: Adenovirus Not Detected (Not Detect); Bordetella Pertussis Not Detected (Not Detect); Chlamydophila pneumoniae Not Detected (Not Detect); Coronavirus 229E Not Detected (Not Detect); Coronavirus HKU1 Not Detected (Not Detect); Coronavirus NL63 Not Detected (Not Detect); Coronavirus OC43 Not Detected (Not Detect); Human Metapneumovirus Not Detected (Not Detect); Human Rhinovirus/Enterovirus Not Detected (Not Detect); Influenza A Subtype 2009 H1 Not Detected (Not Detect); Influenza B Not Detected (Not Detect); Mycoplasma pneumoniae Not Detected (Not Detect); Parainfluenza Virus 1 Not Detected (Not Detect); Parainfluenza Virus 2 Not Detected (Not Detect); Parainfluenza Virus 3 Not Detected (Not Detect); Parainfluenza Virus 4 Not Detected (Not Detect); Respiratory Syncytial Virus Not Detected (Not Detect); SARS-CoV-2 Not Detected (Not Detect)
[2019-11-30] MEDS: *HR* HYDROcodone/Acet 5/325 mg TABLET PO PRN (19:46)
[2019-11-30] MEDS: Nicotine 21 MG PATCH.TD24 TD SCH (20:04)
[2019-11-30] MEDS: *HR* Heparin 5,000 UNIT/ML VIAL SQ SCH (20:04)
[2019-12-01] MEDS: Piperacillin/Tazobactam 3.375 GM in 0.9 % Sodium Chloride Mini Bag 100 ML IVPB SCH ×2 (00:53→08:31)
[2019-12-01] MEDS: *HR* HYDROcodone/Acet 5/325 mg TABLET PO PRN ×2 (01:44→08:30)
[2019-12-01] MEDS: *HR* Heparin 5,000 UNIT/ML VIAL SQ SCH (05:19)
[2019-12-01 07:05] LABS: Basophils # 0.1 K/mcL (0.0-0.2); Basophils % 0.6 %; Eosinophils # 0.2 K/mcL (0.0-0.6); Eosinophils % 2.2 %; Hematocrit 36.7 % (37.5-50.1); Immature Granulocytes % 0.2 % (0-4); Lymphocytes # 3.4 K/mcL (0.6-4.6); Mean Corpuscular HGB Conc 34.3 g/dL (31.6-35.5); Mean Corpuscular Hemoglobin 33.4 pg (28.0-33.3); Mean Corpuscular Volume 97.3 fL (83.0-100.0); Mean Platelet Volume 9.9 fL (9.4-12.4); Monocytes # 0.8 K/mcL (0.0-1.3); Monocytes % 9.6 %; Neutrophils # 3.7 K/mcL (1.6-8.9); Platelet Count 296 K/mcL (140-400); Red Blood Count 3.77 M/mcL (4.19-5.50); Red Cell Distribution Width 11.9 % (11.5-14.5); Segmented Neutrophils % 45.4 %; White Blood Count 8.1 K/mcL (4.3-11.1)
[2019-12-01 07:16] LABS: Hemoglobin 12.6 g/dL (12.9-16.9)
[2019-12-01 07:18] LABS: BUN/Creatinine Ratio 16 (6-26); Blood Urea Nitrogen 12 mg/dL (8-23); Calcium 9.3 mg/dL (8.6-10.3); Carbon Dioxide 24 mEq/L (23-29); Chloride 110 mEq/L (98-107); Chol/HDL Ratio 4.4 (0-4.9); Cholesterol 133 mg/dL (< 200); Glucose 85 mg/dL (70-105); HDL Cholesterol 30 mg/dL (40-59); LDL Cholesterol,Calculated 61 mg/dL (< 100); Magnesium 1.8 mg/dL (1.6-2.6); Osmolality,Calculated 289 (280-300); Phosphorous 2.9 mg/dL (2.7-4.5); Potassium 3.4 mEq/L (3.5-5.1); Sodium 140 mEq/L (136-145); Triglycerides 211 mg/dL (< 150); Troponin I < 0.03 ng/mL (< 0.04); eGFR For African Americans > 60 (> 60); eGFR For Non-African Americans > 60 (> 60)
[2019-12-01 07:47] VITALS: BP 120/79
[2019-12-01] MEDS: Nicotine 21 MG PATCH.TD24 TD SCH (08:31)
[2019-12-01 09:50] LABS: Estimated Average Glucose 108 mg/dl
== END 2019-12-01 11:50 | disposition home or self-care (01) ==
LOC: EMEROOARM 12:13 → CDU 12:13 → SUATTDRO 18:30 → CDU 19:29
PROVIDERS: ADMIT Pharmacist; ATTEND Internal Medicine

== ENCOUNTER 2020-04-27 17:12 | Observation (INO) ==
[2020-04-27] MEDS ORDERED: Acetaminophen 325 MG TABLET PO PRN (20:48)
[2020-04-27 21:07] LABS: Basophils # 0.1 K/mcL (0.0-0.2); Basophils % 0.8 %; Eosinophils % 0.4 %; Hematocrit 44.8 % (37.5-50.1); Hemoglobin 14.9 g/dL (12.9-16.9); Immature Granulocytes % 0.5 % (0-4); Lymphocytes % 30.2 %; Mean Corpuscular HGB Conc 33.3 g/dL (31.6-35.5); Mean Corpuscular Hemoglobin 32.3 pg (28.0-33.3); Mean Corpuscular Volume 97.2 fL (83.0-100.0); Mean Platelet Volume 9.7 fL (9.4-12.4); Monocytes # 0.9 K/mcL (0.0-1.3); Monocytes % 9.2 %; Neutrophils # 5.7 K/mcL (1.6-8.9); Platelet Count 331 K/mcL (140-400); Red Blood Count 4.61 M/mcL (4.19-5.50); Red Cell Distribution Width 11.3 % (11.5-14.5); Segmented Neutrophils % 58.9 %; White Blood Count 9.8 K/mcL (4.3-11.1)
[2020-04-27 21:14] LABS: INR 1.1; Prothrombin Time 12.7 Seconds (9.4-12.1)
[2020-04-27 21:17] LABS: Activated Partial Thrombo Time 32.2 Seconds (26.0-36.0)
[2020-04-27 21:27] LABS: Alanine Aminotransferase 9 Units/L (7-52); Albumin 4.4 g/dL (3.5-5.7); Albumin/Globulin Ratio 1.6 (1.1-2.2); Alkaline Phosphatase 79 Units/L (34-104); Aspartate Amino Transferase 16 Units/L (13-39); BUN/Creatinine Ratio 15 (6-26); Bilirubin,Total 0.5 mg/dL (0.3-1.0); Blood Urea Nitrogen 14 mg/dL (8-23); Calcium 9.8 mg/dL (8.6-10.3); Carbon Dioxide 24 mEq/L (23-29); Chloride 106 mEq/L (98-107); Globulin 2.7 g/dL (2.4-3.5); Glucose 105 mg/dL (70-105); Osmolality,Calculated 287 (280-300); Potassium 3.8 mEq/L (3.5-5.1); Sodium 138 mEq/L (136-145); Total Protein 7.1 g/dL (6.4-8.9); eGFR For African Americans > 60 (> 60); eGFR For Non-African Americans > 60 (> 60)
[2020-04-27] MEDS: Nicotine 21 MG PATCH.TD24 TD SCH (21:28)
[2020-04-27 21:29] LABS: Troponin I < 0.03 ng/mL (< 0.04)
[2020-04-27 21:43] LABS: Thyroid Stimulating Hormone 2.363 mcIU/mL (0.340-5.600)
[2020-04-27] MEDS ORDERED: Ondansetron 4 MG/2 ML VIAL IVP PRN (22:39)
[2020-04-27] MEDS ORDERED: Naloxone 0.4 MG/ML INJ IVP PRN (22:39)
[2020-04-27] MEDS: 0.9 % Sodium Chloride 1,000 ML IVC SCH (22:44)
[2020-04-27] MEDS ORDERED: Perflutren Lipid Microsphere 1.3 ML in 0.9 % Sodium Chloride 8.7 ML IVP PRN (23:05)
[2020-04-27] MEDS: Pantoprazole 40 MG in 0.9 % Sodium Chloride Mini Bag 100 ML IVC SCH (23:06)
[2020-04-27] MEDS ORDERED: Acetaminophen IV 1,000 MG/100 ML BAG IVPB ONE (23:11)
[2020-04-28 02:25] LABS: Hematocrit 41.9 % (37.5-50.1); Hemoglobin 14.1 g/dL (12.9-16.9); Mean Corpuscular HGB Conc 33.7 g/dL (31.6-35.5); Mean Corpuscular Hemoglobin 33.1 pg (28.0-33.3); Mean Corpuscular Volume 98.4 fL (83.0-100.0); Mean Platelet Volume 9.7 fL (9.4-12.4); Platelet Count 294 K/mcL (140-400); Red Blood Count 4.26 M/mcL (4.19-5.50); Red Cell Distribution Width 11.4 % (11.5-14.5); White Blood Count 8.6 K/mcL (4.3-11.1)
[2020-04-28] MEDS ORDERED: Isovue-370 500 ML BOTTLE PO ONE (02:28)
[2020-04-28 02:36] LABS: BUN/Creatinine Ratio 17 (6-26); Blood Urea Nitrogen 17 mg/dL (8-23); Calcium 9.5 mg/dL (8.6-10.3); Carbon Dioxide 26 mEq/L (23-29); Chloride 106 mEq/L (98-107); Chol/HDL Ratio 5.9 (0-4.9); Cholesterol 184 mg/dL (< 200); Glucose 92 mg/dL (70-105); HDL Cholesterol 31 mg/dL (40-59); LDL Cholesterol,Calculated 122 mg/dL (< 100); Magnesium 1.5 mg/dL (1.6-2.6); Osmolality,Calculated 287 (280-300); Sodium 138 mEq/L (136-145); Triglycerides 156 mg/dL (< 150); eGFR For African Americans > 60 (> 60); eGFR For Non-African Americans > 60 (> 60)
[2020-04-28 02:58] LABS: Bacteria,Urine Few per hpf (None-Few); Bilirubin,Urine Negative (Negative); Blood,Urine Trace (Negative); Clarity,Urine Clear (Clear); Color,Urine Light-Orange (Yellow); Glucose,Urine (UA) Normal (Normal); Ketones,Urine Negative (Negative); Leukocyte Esterase,Urine Negative (Negative); Mucus,Urine Few per lpf (None-Few); Nitrite,Urine Negative (Negative); Protein,Urine 30 mg/dL (Neg-Trace); RBC,Urine 0-3 per hpf (0-3); Specific Gravity,Urine > 1.030 (1.010-1.025); Urobilinogen,Urine Normal (Normal)
[2020-04-28] MEDS: Pantoprazole 40 MG in 0.9 % Sodium Chloride Mini Bag 100 ML IVC SCH ×4 (04:54→20:23)
[2020-04-28] MEDS: 0.9 % Sodium Chloride 1,000 ML IVC SCH (09:50)
[2020-04-28] MEDS ORDERED: Prochlorperazine 10 MG/2 ML VIAL IVP ONE (11:28)
[2020-04-28] MEDS: *HR* OxyCODONE Immed Rel 5 MG TABLET PO PRN ×2 (12:26→18:53)
[2020-04-28 13:52] LABS: Adenovirus Not Detected (Not Detect); Bordetella Pertussis Not Detected (Not Detect); Chlamydophila pneumoniae Not Detected (Not Detect); Coronavirus 229E Not Detected (Not Detect); Coronavirus HKU1 Not Detected (Not Detect); Coronavirus NL63 Not Detected (Not Detect); Coronavirus OC43 Not Detected (Not Detect); Human Metapneumovirus Not Detected (Not Detect); Human Rhinovirus/Enterovirus Not Detected (Not Detect); Influenza A Subtype 2009 H1 Not Detected (Not Detect); Influenza B Not Detected (Not Detect); Mycoplasma pneumoniae Not Detected (Not Detect); Parainfluenza Virus 1 Not Detected (Not Detect); Parainfluenza Virus 2 Not Detected (Not Detect); Parainfluenza Virus 3 Not Detected (Not Detect); Parainfluenza Virus 4 Not Detected (Not Detect); Respiratory Syncytial Virus Not Detected (Not Detect); SARS-CoV-2 Not Detected (Not Detect)
[2020-04-28] MEDS: Nicotine 21 MG PATCH.TD24 TD SCH (20:22)
[2020-04-28] MEDS: QUEtiapine Fumarate 25 MG TABLET PO SCH ×2 (23:00→23:26)
[2020-04-29] MEDS: Pantoprazole 40 MG in 0.9 % Sodium Chloride Mini Bag 100 ML IVC SCH ×2 (02:13→04:39)
[2020-04-29 03:29] LABS: Hematocrit 38.9 % (37.5-50.1); Hemoglobin 13.2 g/dL (12.9-16.9); Mean Corpuscular HGB Conc 33.9 g/dL (31.6-35.5); Mean Corpuscular Hemoglobin 32.9 pg (28.0-33.3); Mean Platelet Volume 9.7 fL (9.4-12.4); Platelet Count 277 K/mcL (140-400); Red Blood Count 4.01 M/mcL (4.19-5.50); Red Cell Distribution Width 11.2 % (11.5-14.5); White Blood Count 7.7 K/mcL (4.3-11.1)
[2020-04-29 03:44] LABS: BUN/Creatinine Ratio 13 (6-26); Blood Urea Nitrogen 9 mg/dL (8-23); Calcium 9.2 mg/dL (8.6-10.3); Carbon Dioxide 26 mEq/L (23-29); Chloride 109 mEq/L (98-107); Glucose 81 mg/dL (70-105); Osmolality,Calculated 288 (280-300); Potassium 3.7 mEq/L (3.5-5.1); Sodium 140 mEq/L (136-145); eGFR For African Americans > 60 (> 60); eGFR For Non-African Americans > 60 (> 60)
[2020-04-29] MEDS: *HR* OxyCODONE Immed Rel 5 MG TABLET PO PRN ×2 (04:46→11:32)
[2020-04-29] MEDS ORDERED: 0.9 % Sodium Chloride 500 ML IVC SCH (10:15)
[2020-04-29] MEDS ORDERED: Lidocaine -MPF 2% 2 ML VIAL ONE ×2 (10:36)
[2020-04-29 14:43] VITALS: BP 132/77
[2020-04-29] MEDS ORDERED: Pantoprazole 40 MG VIAL IVP SCH (18:00)
== END 2020-04-29 15:30 | disposition home or self-care (01) ==
LOC: 3ANU → SUATTDRO 18:12
PROVIDERS: ADMIT Internal Medicine; ATTEND Internal Medicine

== ENCOUNTER 2021-06-28 13:18 | Observation (INO) ==
[2021-06-28 14:58] LABS: Basophils # 0.1 K/mcL (0.0-0.2); Basophils % 0.5 %; Eosinophils % 0.2 %; Hematocrit 36.1 % (37.5-50.1); Immature Granulocytes % 0.4 % (0-4); Lymphocytes # 2.5 K/mcL (0.6-4.6); Lymphocytes % 20.5 %; Mean Corpuscular HGB Conc 33.2 g/dL (31.6-35.5); Mean Corpuscular Volume 90.3 fL (83.0-100.0); Mean Platelet Volume 9.3 fL (9.4-12.4); Monocytes # 0.9 K/mcL (0.0-1.3); Monocytes % 7.4 %; Neutrophils # 8.7 K/mcL (1.6-8.9); Platelet Count 480 K/mcL (140-400); Red Cell Distribution Width 13.2 % (11.5-14.5); White Blood Count 12.3 K/mcL (4.3-11.1)
[2021-06-28 15:01] LABS: Bacteria,Urine Few per hpf (None-Few); Bilirubin,Urine Negative (Negative); Blood,Urine Negative (Negative); Clarity,Urine Turbid (Clear); Color,Urine Yellow (Yellow); Glucose,Urine (UA) Normal (Normal); Ketones,Urine Negative (Negative); Leukocyte Esterase,Urine Negative (Negative); Mucus,Urine Few per lpf (None-Few); Nitrite,Urine Negative (Negative); Protein,Urine 50 mg/dL (Neg-Trace); Specific Gravity,Urine 1.028 (1.010-1.025); Urobilinogen,Urine Normal (Normal)
[2021-06-28 15:06] LABS: INR 1.1; Prothrombin Time 12.5 Seconds (9.4-12.1)
[2021-06-28] MEDS ORDERED: *HR* FentaNYL (PF) 100 MCG/2 ML VIAL IVP ONE (15:06)
[2021-06-28] MEDS ORDERED: 0.9 % Sodium Chloride 1,000 ML IV ONE (15:06)
[2021-06-28] MEDS ORDERED: Ketorolac 30 MG/ML VIAL IVP ONE (15:06)
[2021-06-28] MEDS ORDERED: Ondansetron 4 MG/2 ML VIAL IVP PRN ×2 (15:07→17:39)
[2021-06-28 15:19] LABS: Alanine Aminotransferase 11 Units/L (7-52); Albumin 4.3 g/dL (3.5-5.7); Albumin/Globulin Ratio 1.7 (1.1-2.2); Alkaline Phosphatase 78 Units/L (34-104); Aspartate Amino Transferase 15 Units/L (13-39); BUN/Creatinine Ratio 15 (6-26); Bilirubin,Indirect 0.4 mg/dL (0.0-1.0); Bilirubin,Total 0.4 mg/dL (0.3-1.0); Blood Urea Nitrogen 12 mg/dL (8-23); Calcium 9.9 mg/dL (8.6-10.3); Carbon Dioxide 28 mEq/L (23-29); Chloride 105 mEq/L (98-107); Globulin 2.6 g/dL (2.4-3.5); Glucose 89 mg/dL (70-105); Lipase 23 Units/L (11-82); Osmolality,Calculated 289 (280-300); Potassium 3.7 mEq/L (3.5-5.1); Sodium 140 mEq/L (136-145); Total Protein 6.9 g/dL (6.4-8.9); Troponin I < 0.03 ng/mL (< 0.04); eGFR For African Americans > 60 (> 60); eGFR For Non-African Americans > 60 (> 60)
[2021-06-28] MEDS ORDERED: Piperacillin/Tazobactam 3.375 GM in 0.9 % Sodium Chloride Mini Bag 100 ML IVPB ONE (15:30)
[2021-06-28] MEDS ORDERED: Pantoprazole 40 MG VIAL IVP ONE (16:21)
[2021-06-28] MEDS ORDERED: Famotidine 20 MG/2 ML VIAL IVP ONE (16:21)
[2021-06-28] MEDS ORDERED: Metoclopramide 10 MG/2 ML VIAL IVP ONE (16:21)
[2021-06-28] MEDS ORDERED: diazePAM 10 MG/2 ML SYRINGE IVP ONE (16:22)
[2021-06-28 16:32] LABS: Influenza A PCR Negative (Negative); Influenza B PCR Negative (Negative); Resp. Syncytial Virus PCR Negative (Negative)
[2021-06-28 16:33] LABS: SARS-CoV-2 by PCR (In House) Negative (Negative)
[2021-06-28] MEDS ORDERED: Mag Hydrox/Al Hydrox/Simeth 30 ML UDC PO PRN (17:39)
[2021-06-28] MEDS ORDERED: Melatonin 3 MG TABLET PO PRN (17:39)
[2021-06-28] MEDS ORDERED: Naloxone 0.4 MG/ML INJ IVP PRN (17:39)
[2021-06-28] MEDS: *HR* OxyCODONE/APAP 5/325 TABLET PO PRN (20:21)
[2021-06-28] MEDS: Ringers Solution, Lactated 1,000 ML IVC SCH (20:22)
[2021-06-29] MEDS: Piperacillin/Tazobactam 3.375 GM in 0.9 % Sodium Chloride Mini Bag 100 ML IVPB SCH ×3 (00:10→16:11)
[2021-06-29] MEDS ORDERED: Prochlorperazine 10 MG/2 ML VIAL IVP ONE (00:33)
[2021-06-29] MEDS: *HR* OxyCODONE/APAP 5/325 TABLET PO PRN ×4 (02:38→21:03)
[2021-06-29 03:49] LABS: Hematocrit 29.9 % (37.5-50.1); Mean Corpuscular HGB Conc 32.4 g/dL (31.6-35.5); Mean Corpuscular Hemoglobin 29.8 pg (28.0-33.3); Mean Corpuscular Volume 91.7 fL (83.0-100.0); Mean Platelet Volume 9.7 fL (9.4-12.4); Platelet Count 355 K/mcL (140-400); Red Blood Count 3.26 M/mcL (4.19-5.50); Red Cell Distribution Width 13.2 % (11.5-14.5); White Blood Count 9.1 K/mcL (4.3-11.1)
[2021-06-29 03:51] LABS: Hemoglobin 9.7 g/dL (12.9-16.9)
[2021-06-29 04:00] LABS: BUN/Creatinine Ratio 15 (6-26); Blood Urea Nitrogen 12 mg/dL (8-23); Calcium 9.3 mg/dL (8.6-10.3); Carbon Dioxide 25 mEq/L (23-29); Chloride 107 mEq/L (98-107); Glucose 75 mg/dL (70-105); Osmolality,Calculated 286 (280-300); Potassium 3.3 mEq/L (3.5-5.1); Sodium 139 mEq/L (136-145); eGFR For African Americans > 60 (> 60); eGFR For Non-African Americans > 60 (> 60)
[2021-06-29] MEDS: Ringers Solution, Lactated 1,000 ML IVC SCH (06:04)
[2021-06-29] MEDS ORDERED: Potassium Chloride Elixir 20 MEQ/15 ML UDC PO ONE (08:11)
[2021-06-29] MEDS ORDERED: Isovue-370 500 ML BOTTLE IVP ONE (10:49)
[2021-06-29] MEDS: Gabapentin 100 MG CAPSULE PO SCH ×2 (11:32→14:55)
[2021-06-29] MEDS: Hydrocortisone Acetate 25 MG RECTAL SUPPOSITORY RC SCH ×2 (14:13→20:58)
[2021-06-29] MEDS ORDERED: Ipratropium 1 PUFF INHALER IH PRN (14:24)
[2021-06-29] MEDS ORDERED: Simethicone 80 MG TAB.CHEW PO PRN (15:26)
[2021-06-29] MEDS ORDERED: Gabapentin 300 MG CAPSULE PO SCH (15:45)
[2021-06-29] MEDS ORDERED: Gabapentin 100 MG CAPSULE PO ONE (16:00)
[2021-06-29] MEDS: Metoprolol XL (24 HR) Succ 50 MG TAB.ER.24H PO SCH (16:11)
[2021-06-29] MEDS: Gabapentin 300 MG CAPSULE PO SCH (20:58)
[2021-06-29] MEDS: Preparation H Ointment 57 GM TUBE RC SCH (21:05)
[2021-06-30] MEDS: Piperacillin/Tazobactam 3.375 GM in 0.9 % Sodium Chloride Mini Bag 100 ML IVPB SCH ×2 (00:16→08:24)
[2021-06-30] MEDS: *HR* OxyCODONE/APAP 5/325 TABLET PO PRN ×2 (03:04→10:54)
[2021-06-30 04:25] LABS: Hemoglobin 10.4 g/dL (12.9-16.9); Mean Corpuscular HGB Conc 32.5 g/dL (31.6-35.5); Mean Corpuscular Volume 92.2 fL (83.0-100.0); Mean Platelet Volume 9.8 fL (9.4-12.4); Platelet Count 387 K/mcL (140-400); Red Blood Count 3.47 M/mcL (4.19-5.50); Red Cell Distribution Width 13.5 % (11.5-14.5); White Blood Count 9.6 K/mcL (4.3-11.1)
[2021-06-30 04:46] LABS: BUN/Creatinine Ratio 16 (6-26); Blood Urea Nitrogen 15 mg/dL (8-23); Calcium 9.5 mg/dL (8.6-10.3); Carbon Dioxide 25 mEq/L (23-29); Chloride 106 mEq/L (98-107); Glucose 88 mg/dL (70-105); Osmolality,Calculated 290 (280-300); Potassium 3.9 mEq/L (3.5-5.1); Sodium 140 mEq/L (136-145); eGFR For African Americans > 60 (> 60); eGFR For Non-African Americans > 60 (> 60)
[2021-06-30 07:24] VITALS: O2SAT 95
[2021-06-30] MEDS: Metoprolol XL (24 HR) Succ 50 MG TAB.ER.24H PO SCH (08:24)
[2021-06-30] MEDS: Gabapentin 300 MG CAPSULE PO SCH (08:24)
[2021-06-30] MEDS: Hydrocortisone Acetate 25 MG RECTAL SUPPOSITORY RC SCH (08:24)
[2021-06-30] MEDS: Preparation H Ointment 57 GM TUBE RC SCH (08:28)
[2021-06-30 10:34] VITALS: BP 133/82; PULSE 69; TEMP 98.2
== END 2021-06-30 12:45 | disposition home or self-care (01) ==
LOC: 3ANU 13:18 → EMEROOARM 13:18 → SUATTDRO 17:16 → 3ANU 19:32
PROVIDERS: ADMIT Hospitalist; ATTEND Hospitalist

== ENCOUNTER 2021-09-26 14:14 | Inpatient (IN) ==
[2021-09-26] MEDS ORDERED: 0.9 % Sodium Chloride 1,000 ML ONE ×2 (14:19→14:51)
[2021-09-26] MEDS ORDERED: 0.9 % Sodium Chloride 1,000 ML IVC ONE (14:49)
[2021-09-26 16:37] LABS: Adenovirus Not Detected (Not Detect); Bordetella Pertussis Not Detected (Not Detect); Chlamydophila pneumoniae Not Detected (Not Detect); Coronavirus 229E Not Detected (Not Detect); Coronavirus HKU1 Not Detected (Not Detect); Coronavirus NL63 Not Detected (Not Detect); Coronavirus OC43 Not Detected (Not Detect); Human Metapneumovirus Not Detected (Not Detect); Human Rhinovirus/Enterovirus Not Detected (Not Detect); Influenza A Subtype 2009 H1 Not Detected (Not Detect); Influenza B Not Detected (Not Detect); Mycoplasma pneumoniae Not Detected (Not Detect); Parainfluenza Virus 1 Not Detected (Not Detect); Parainfluenza Virus 2 Not Detected (Not Detect); Parainfluenza Virus 3 Not Detected (Not Detect); Parainfluenza Virus 4 Not Detected (Not Detect); Respiratory Syncytial Virus Not Detected (Not Detect); SARS-CoV-2 Not Detected (Not Detect)
[2021-09-26] MEDS ORDERED: Acetaminophen 325 MG TABLET PO ONE (16:52)
[2021-09-26 16:56] LABS: Bilirubin,Urine Negative (Negative); Blood,Urine Negative (Negative); Clarity,Urine Clear (Clear); Color,Urine Light-Orange (Yellow); Glucose,Urine (UA) Normal (Normal); Ketones,Urine Trace mg/dL (Negative); Leukocyte Esterase,Urine Negative (Negative); Nitrite,Urine Negative (Negative); PH,Urine 5.5 pH Units (5.0-8.0); Protein,Urine Trace mg/dL (Neg-Trace); Urobilinogen,Urine Normal (Normal)
[2021-09-26 17:02] LABS: Nucleated Red Blood Cells 0.5 /100 WBC (0); Red Cell Distribution Width 12.8 % (11.5-14.5); White Blood Count 4.1 K/mcL (4.3-11.1)
[2021-09-26 17:04] LABS: Basophils % 0.2 %; Hematocrit 44.4 % (37.5-50.1); Hemoglobin 15.7 g/dL (12.9-16.9); Immature Platelets 13.9 % (1.1-6.1); Lymphocytes # 0.6 K/mcL (0.6-4.6); Lymphocytes % 14.4 %; Mean Corpuscular HGB Conc 35.4 g/dL (31.6-35.5); Mean Corpuscular Hemoglobin 30.4 pg (28.0-33.3); Mean Platelet Volume 12.4 fL (9.4-12.4); Monocytes # 0.1 K/mcL (0.0-1.3); Monocytes % 2.9 %; Red Blood Count 5.16 M/mcL (4.19-5.50); Segmented Neutrophils % 81.5 %
[2021-09-26 17:20] LABS: VBG HCO3 18 mEq/L (21-27); VBG PCO2 38 mmHg (41-51); VBG PH 7.28 pH Units (7.32-7.42); VBG PO2 49 mmHg (25-50)
[2021-09-26 17:21] LABS: Alanine Aminotransferase 16 Units/L (7-52); Albumin 3.1 g/dL (3.5-5.7); Albumin/Globulin Ratio 1.8 (1.1-2.2); Alkaline Phosphatase 63 Units/L (34-104); Aspartate Amino Transferase 19 Units/L (13-39); BUN/Creatinine Ratio 63 (6-26); Blood Urea Nitrogen 65 mg/dL (8-23); Calcium 8.3 mg/dL (8.6-10.3); Carbon Dioxide 19 mEq/L (23-29); Chloride 100 mEq/L (98-107); Creatine Kinase 111 Units/L (30-223); Globulin 1.7 g/dL (2.4-3.5); Glucose 101 mg/dL (70-105); Magnesium 2.2 mg/dL (1.6-2.6); Osmolality,Calculated 293 (280-300); Potassium 3.7 mEq/L (3.5-5.1); Sodium 132 mEq/L (136-145); Total Protein 4.8 g/dL (6.4-8.9); eGFR For African Americans > 60 (> 60); eGFR For Non-African Americans > 60 (> 60)
[2021-09-26] MEDS ORDERED: Ipratropium/Albuterol Neb 3 ML IH ONE (17:24)
[2021-09-26] MEDS ORDERED: methylPREDNISolone 125 MG/2 ML VIAL IVP ONE (17:24)
[2021-09-26] MEDS ORDERED: Ketorolac 30 MG/ML VIAL IVP ONE (17:26)
[2021-09-26 17:35] LABS: Troponin I 0.07 ng/mL (< 0.04)
[2021-09-26 17:46] LABS: Neutrophils # 3.3 K/mcL (1.6-8.9); Platelet Count 68 K/mcL (140-400)
[2021-09-26] MEDS ORDERED: Iopamidol - 370 500 ML MLS IVP ONE (17:59)
[2021-09-26] MEDS ORDERED: Naloxone 0.4 MG/ML INJ IVP PRN (19:55)
[2021-09-26] MEDS ORDERED: Acetaminophen 325 MG TABLET PO PRN (19:55)
[2021-09-26] MEDS ORDERED: MOM Conc 10 ML UD.LIQ PO PRN (19:55)
[2021-09-26] MEDS ORDERED: Melatonin 3 MG TABLET PO PRN (19:55)
[2021-09-26] MEDS ORDERED: Ondansetron 4 MG/2 ML VIAL IVP PRN (19:55)
[2021-09-26] MEDS ORDERED: D5% in 0.45% NACL 1,000 ML IVC SCH (20:00)
[2021-09-26] MEDS: D5% in 0.9% NACL 1,000 ML IVC SCH (20:59)
[2021-09-26] MEDS: *HR* Heparin 5,000 UNIT/ML VIAL SQ SCH (21:39)
[2021-09-26] MEDS ORDERED: Azithromycin 500 MG in 0.9 % Sodium Chloride 250 ML IVPB SCH (22:00)
[2021-09-26] MEDS: Ipratropium/Albuterol Neb 3 ML IH SCH ×2 (22:49→23:07)
[2021-09-26] MEDS: MethylPREDNISolone 40 MG/ML VIAL IVP SCH (23:52)
[2021-09-27] MEDS ORDERED: Potassium Phosphate 44 MEQ in 0.9 % Sodium Chloride 250 ML IVPB ONE (04:20)
[2021-09-27] MEDS: Ipratropium/Albuterol Neb 3 ML IH SCH ×6 (04:39→23:04)
[2021-09-27 04:51] LABS: VBG HCO3 19 mEq/L (21-27); VBG PCO2 37 mmHg (41-51); VBG PH 7.32 pH Units (7.32-7.42); VBG PO2 87 mmHg (25-50)
[2021-09-27 04:56] LABS: Hematocrit 36.7 % (37.5-50.1); Hemoglobin 12.8 g/dL (12.9-16.9); Immature Platelets 11.3 % (1.1-6.1); Mean Corpuscular HGB Conc 34.9 g/dL (31.6-35.5); Mean Corpuscular Volume 85.9 fL (83.0-100.0); Mean Platelet Volume 12.3 fL (9.4-12.4); Red Blood Count 4.27 M/mcL (4.19-5.50); Red Cell Distribution Width 12.9 % (11.5-14.5); White Blood Count 2.3 K/mcL (4.3-11.1)
[2021-09-27] MEDS: *HR* Heparin 5,000 UNIT/ML VIAL SQ SCH (05:01)
[2021-09-27] MEDS: MethylPREDNISolone 40 MG/ML VIAL IVP SCH ×2 (05:01→12:31)
[2021-09-27 05:07] LABS: BUN/Creatinine Ratio 76 (6-26); Blood Urea Nitrogen 55 mg/dL (8-23); Calcium 7.5 mg/dL (8.6-10.3); Carbon Dioxide 20 mEq/L (23-29); Chloride 107 mEq/L (98-107); Glucose 216 mg/dL (70-105); Osmolality,Calculated 300 (280-300); Phosphorous 2.5 mg/dL (2.7-4.5); Potassium 2.9 mEq/L (3.5-5.1); Sodium 134 mEq/L (136-145); eGFR For African Americans > 60 (> 60); eGFR For Non-African Americans > 60 (> 60)
[2021-09-27] MEDS: D5% in 0.9% NACL 1,000 ML IVC SCH ×2 (06:05→18:14)
[2021-09-27 12:18] LABS: BUN/Creatinine Ratio 72 (6-26); Blood Urea Nitrogen 44 mg/dL (8-23); Calcium 7.1 mg/dL (8.6-10.3); Carbon Dioxide 16 mEq/L (23-29); Chloride 109 mEq/L (98-107); Glucose 226 mg/dL (70-105); Osmolality,Calculated 302 (280-300); Potassium 3.2 mEq/L (3.5-5.1); Sodium 137 mEq/L (136-145); eGFR For African Americans > 60 (> 60); eGFR For Non-African Americans > 60 (> 60)
[2021-09-27] MEDS ORDERED: *HR* LORazepam Oral Conc 2 MG/ML SL PRN (14:04)
[2021-09-27] MEDS ORDERED: Morphine Sulfate Oral CONC 10 MG/0.5 ML ORAL.SYG SL PRN (14:04)
[2021-09-28] MEDS: Ipratropium/Albuterol Neb 3 ML IH SCH ×4 (04:18→15:55)
[2021-09-28 09:44] VITALS: BP 84/68; PULSE 65; TEMP 97.6
[2021-09-28 18:13] VITALS: O2SAT 99
== END 2021-09-28 16:06 | disposition hospice, home (50) | DRG 190 ==
LOC: EMEROOARM 14:14 → 2NENU 14:14 → SUATTDRO 18:11 → 2NENU 20:03
PROVIDERS: ADMIT Internal Medicine; ATTEND Internal Medicine